=== PATIENT | male | born 1970 | race African-American/Black ===

== ENCOUNTER 2018-04-21 18:56 | Emergency (ER) | payer BC ==
[2018-04-21] MEDS ORDERED: HYDROcodone/APAP 5-325MG 1 EACH TAB PO STA (19:26)
[2018-04-21] MEDS ORDERED: KETOROLAC 60 MG/2 ML VIAL IM STA (19:26)
[2018-04-21] MEDS ORDERED: ACET/COD 300 MG/30 MG STARTER PACK 6 TAB BTL PO STA (19:34)
[2018-04-21] MEDS ORDERED: Acetaminophen-Codeine 300-30mg TAB PO STA (19:34)
--- NOTE | 2018-04-21 19:34 | ED ---
General Adult HPI - General Chief complaint: Back Pain/Injury Stated complaint: POSS KIDNEY STONE Time Seen by Provider: 04/21/18 19:13 Source: patient, RN notes reviewed, old records reviewed Mode of arrival: ambulatory Limitations: no limitations - History of Present Illness Initial comments: This is a 47-year-old male the ER for evaluation pain flank pain and back pain. Patient has no significant medical history history of kidney stones states this feels similar. Left-sided flank and back pain. Patient had no injury noted, no blood in his urine no fevers. No recent IV drug use or abuse. Patient is complaining of left-sided flank pain left sided back pain. No real modifying factors for symptoms - Related Data Previous Rx's Medication Instructions Recorded Naproxen [Naprosyn] 500 mg PO Q12HR PRN #30 tab 04/21/18 Tamsulosin [Flomax] 0.4 mg PO DAILY #7 cap 04/21/18 Allergies Allergy/AdvReac Type Severity Reaction Status Date / Time No Known Allergies Allergy Verified 04/21/18 19:11 Review of Systems ROS Statement: Those systems with pertinent positive or pertinent negative responses have been documented in the HPI. ROS Other: All systems not noted in ROS Statement are negative. Past Medical History Past Medical History: No Reported History History of Any Multi-Drug Resistant Organisms: None Reported Additional Past Surgical History / Comment(s): parathyroid surgery Past Psychological History: No Psychological Hx Reported Smoking Status: Never smoker Past Alcohol Use History: Occasional Past Drug Use History: None Reported General Exam Limitations: no limitations General appearance: alert, in no apparent distress Head exam: Present: atraumatic, normocephalic, normal inspection Eye exam: Present: normal appearance, PERRL, EOMI. Absent: scleral icterus, conjunctival injection, periorbital swelling ENT exam: Present: normal exam, mucous membranes moist Neck exam: Present: normal inspection. Absent: tenderness, meningismus, lymphadenopathy Respiratory exam: Present: normal lung sounds bilaterally. Absent: respiratory distress, wheezes, rales, rhonchi, stridor Cardiovascular Exam: Present: regular rate, normal rhythm, normal heart sounds. Absent: systolic murmur, diastolic murmur, rubs, gallop, clicks GI/Abdominal exam: Present: soft, normal bowel sounds. Absent: distended, tenderness, guarding, rebound, rigid Extremities exam: Present: normal inspection, full ROM, normal capillary refill. Absent: tenderness, pedal edema, joint swelling, calf tenderness Back exam: Present: normal inspection Neurological exam: Present: alert, oriented X3, CN II-XII intact Psychiatric exam: Present: normal affect, normal mood Skin exam: Present: warm, dry, intact, normal color. Absent: rash Course Vital Signs 04/21/18 04/21/18 19:09 21:20 Temperature 98.6 F 98.0 F Pulse Rate 58 L 62 Respiratory 18 16 Rate Blood Pressure 125/82 121/62 O2 Sat by Pulse 99 98 Oximetry - Reevaluation(s) Reevaluation #1: Chest at length patient's symptoms, negative CT. Possible passage of kidney stone Medical Decision Making - Medical Decision Making 47 male the ER for eversion possible kidney stone, history of kidney stones. Patient does have CT here which is negative urine is negative. Patient will be discharged home - Lab Data Lab Results 04/21/18 Range/Units 20:00 Urine Color Light Yellow Urine Appearance Clear (Clear) Urine pH 6.0 (5.0-8.0) Ur Specific [place] 1.010 (1.001-1.035) Urine Protein Negative (Negative) Urine Glucose (UA) Negative (Negative) Urine Ketones Negative (Negative) Urine Blood Negative (Negative) Urine Nitrite Negative (Negative) Urine Bilirubin Negative (Negative) Urine Urobilinogen <2.0 (<2.0) mg/dL Ur Leukocyte Esterase Negative (Negative) - Radiology Data Radiology results: report reviewed (CT abdomen and pelvis negative for acute disease), image reviewed Disposition Clinical Impression: Left flank pain Disposition: HOME SELF-CARE Condition: Good Instructions: Acute Low Back Pain (ED) Prescriptions: Naproxen [Naprosyn] 500 mg PO Q12HR PRN #30 tab PRN Reason: Pain Tamsulosin [Flomax] 0.4 mg PO DAILY #7 cap Is patient prescribed a controlled substance at d/c from ED?: No Referrals: Patsy Mcclain MD [Primary Care Provider] - 1-2 days
[2018-04-21 20:17] LABS: Appearance,Urine Clear (Clear); Bilirubin,Urine Negative (Negative); Blood,Urine Negative (Negative); Color,Urine Light Yellow; Glucose,Urine (UA) Negative (Negative); Ketones,Urine Negative (Negative); Leukocyte Esterase,Urine Negative (Negative); Nitrite,Urine Negative (Negative); Protein,Urine Negative (Negative); Urobilinogen,Urine <2.0 mg/dL (<2.0)
--- NOTE | 2018-04-21 20:47 | CT ---
EXAMINATION TYPE: CT abdomen pelvis wo con DATE OF EXAM: 04/21/2018 COMPARISON: 09/07/2010 HISTORY: 47-year-old male Bilateral flank pain. CT DLP: 445.1 mGycm. Automated exposure control for dose reduction was used. TECHNIQUE: Contiguous axial scanning of the abdomen and pelvis without IV contrast. Coronal and sagit jose reconstructions performed. FINDINGS: Heart normal size without pericardial effusion. Strandy atelectasis in the lower lungs. No pleural ef fusion. Tiny hiatal hernia. Noncontrast images of the liver show a couple scattered hypodense lesions too small for accurate CT c haracterization, largest posteriorly in the right lobe measures 1.3 cm, slightly larger from st suggestive of a cyst. Gallbladder, adrenal glands, spleen, and pancreas show no gross anomaly. No nephrolithiasis or hydronephrosis. Stable borderline sized adia hepatic lymph node at 9 mm. Additional scattered prominent but nonenlar ged mesenteric lymph nodes are unchanged. No dilated small bowel, free fluid, or free air. Normal appendix. Mild to moderate stool burden. Scat tered colonic diverticulosis, greatest in the sigmoid colon. No pericolonic inflammatory change. Bladder is urine distended. Prostate gland measures 4.2 cm wide. Phlebolith in the right side of the pelvis. No abnormal fluid collection the pelvis or pelvic lymphadenopathy. Bones: Mild degenerative changes at the hips. Stable left acetabular bone island. There is some bony ankylosis across the SI joints. No osseous destructive process. IMPRESSION: 1. No nephrolithiasis or hydronephrosis. 2. Colonic diverticulosis without acute diverticulitis. 3. Tiny hiatal hernia. 4. Ankylosis across the SI joints. Clinically correlate. Findings can be seen in the setting of infl ammatory spondyloarthropathy. No fusion across the spine is seen at this time.
[2018-04-21 21:23] VITALS: BP 121/62; PULSE 62; RESP 16; TEMP 98
== END 2018-04-21 21:20 | disposition home or self-care (01) ==
LOC: EC 18:56
DX: R10.9 Unspecified abdominal pain (principal); M54.9 Dorsalgia, unspecified; Z87.442 Personal history of urinary calculi; Z98.890 Other specified postprocedural states
CPT/HCPCS: 81003; 87086; 74176; 96372; 99284; J1885

== ENCOUNTER → 2018-11-14 | Outpatient (CLI) | payer BC ==
[2018-11-14 17:17] LABS: Albumin 4.8 g/dL (3.80-4.90); Anion Gap 8.6 mmol/L (4.00-12.00); Calcium 9.8 mg/dL (8.7-10.3); Carbon Dioxide 26.4 mmol/L (21.6-31.8); Globulin 2.4 g/dL (1.6-3.3); LDL Cholesterol,Calculated 154.6 mg/dL (0.0-131.0); Potassium 4.4 mmol/L (3.5-5.5); Total Bilirubin 0.7 mg/dL (0.3-1.2); Total Protein 7.2 g/dL (6.2-8.2); VLDL Calculation 40.4 mg/dL (5.00-40.00)
== END | disposition home or self-care (01) ==
LOC: LABWHC1 10:21
DX: E78.5 Hyperlipidemia, unspecified (principal)
CPT/HCPCS: 36415; 80053; 80061; 84443

== ENCOUNTER → 2020-10-13 | Outpatient (CLI) | payer BC ==
--- NOTE | 2020-10-13 08:13 | US ---
EXAMINATION TYPE: US abdomen complete DATE OF EXAM: 10/13/2020 COMPARISON: NONE CLINICAL HISTORY: Q44.6 Cystic disease of liver. Limited due to body habitus EXAM MEASUREMENTS: Liver Length: 12.1 cm Gallbladder Wall: .2 cm CBD: .5 cm Spleen: 12 cm Right Kidney: 10.3 x 4.6 x 4.9 cm Left Kidney: 10.6 x 5.1 x 4.6 cm Pancreas: Obscured by bowel gas Liver: 0.9 cm cystic area left lobe Gallbladder: Stones visualized Evidence for sonographic Lind's sign: No CBD: wnl Spleen: wnl Right Kidney: wnl Left Kidney: wnl Upper IVC: wnl Abd Aorta: wnl IMPRESSION: 1. Hepatic cyst 2. Cholelithiasis
== END | disposition home or self-care (01) ==
LOC: RADUSWWP 07:15
PROVIDERS: ATTEND Internal Medicine
DX: K76.89 Other specified diseases of liver (principal); K80.20 Calculus of gallbladder without cholecystitis without obstruction
CPT/HCPCS: 76700

== ENCOUNTER 2020-10-16 21:13 | Emergency (ER) | payer BC ==
[2020-10-16 21:19] VITALS: RESP 20
[2020-10-16] MEDS ORDERED: SODIUM CHLORIDE 0.9% 1,000 ML IV STA (21:31)
[2020-10-16 21:49] LABS: Basophils # (A) 0.1 k/uL (0-0.2); Basophils % (A) 1 %; Eosinophils # (A) 0.3 k/uL (0-0.7); Eosinophils % (A) 2 %; HCT 43.2 % (39.0-53.0); HGB 15.1 gm/dL (13.0-17.5); Lymphocytes # (A) 1.2 k/uL (1.0-4.8); Lymphocytes % (A) 10 %; MCH 30.4 pg (25.0-35.0); MCHC 34.9 g/dL (31.0-37.0); MCV 87.1 fL (80.0-100.0); Mean Platelet Volume 10.3; Monocytes # (A) 0.9 k/uL (0-1.0); Monocytes % (A) 7 %; Neutrophils # (A) 9.9 k/uL (1.3-7.7); Neutrophils % (A) 80 %; Platelet Count 178 k/uL (150-450); RBC 4.96 m/uL (4.30-5.90); RDW 12.7 % (11.5-15.5); WBC 12.5 k/uL (3.8-10.6)
[2020-10-16 21:58] LABS: ALT 23 U/L (4-49); AST 29 U/L (17-59); African American GFR (CKD) >90 (>60 ml/min/1.73 sqM); Albumin 4.8 g/dL (3.5-5.0); Alkaline Phosphatase 57 U/L (38-126); Amylase 75 U/L (30-110); Anion Gap 12 mmol/L; Blood Urea Nitrogen 13 mg/dL (9-20); Calcium 10.3 mg/dL (8.4-10.2); Carbon Dioxide 22 mmol/L (22-30); Chloride 103 mmol/L (98-107); Glucose 124 mg/dL (74-99); Lipase 63 U/L (23-300); Non-African American GFR(CKD) >90 (>60 ml/min/1.73 sqM); Potassium 3.9 mmol/L (3.5-5.1); Sodium 137 mmol/L (137-145); Total Bilirubin 1.1 mg/dL (0.2-1.3); Total Protein 8.3 g/dL (6.3-8.2)
[2020-10-16 22:01] LABS: Appearance,Urine Clear (Clear); Bilirubin,Urine Negative (Negative); Blood,Urine Negative (Negative); Color,Urine Yellow; Glucose,Urine (UA) Negative (Negative); Ketones,Urine Negative (Negative); Leukocyte Esterase,Urine Negative (Negative); Nitrite,Urine Negative (Negative); Protein,Urine Negative (Negative); Specific Gravity,Urine 1.013 (1.001-1.035); Urobilinogen,Urine <2.0 mg/dL (<2.0)
--- NOTE | 2020-10-16 22:41 | ED ---
Abdominal Pain HPI - General Chief Complaint: Abdominal Pain Stated Complaint: Abd Pain Time Seen by Provider: 10/16/20 21:21 Source: patient Mode of arrival: ambulatory Limitations: no limitations - History of Present Illness Initial Comments: 50-year-old male patient presents to the emergency department today for evaluation of generalized abdominal discomfort and pain. Patient states he did have a bowel movement but still feels like he was quite full. He is passing gas. Denies fever or chills. Denies nausea or vomiting. States he has had no appetite today. Denies history of abdominal surgery. States he takes Singulair and Claritin but no other medications. Patient denies any recent rash, cough, shortness of breath, chest pain, back pain, numbness, tingling, dizziness, weakness, hematuria, dysuria, urinary urgency, urinary frequency, headache, visual changes, or any other complaints. - Related Data Home Medications Medication Instructions Recorded Confirmed Loratadine-Pseudoeph 10-240 mg 1 tab PO DAILY@1900 10/16/20 10/16/20 [Claritin-D 24 Hour] Montelukast Sodium [Singulair] 10 mg PO DAILY@1900 10/16/20 10/16/20 Previous Rx's Medication Instructions Recorded Amoxic-Pot Clav 875-125Mg 1 tab PO Q12HR #20 tablet 10/16/20 [Augmentin 875-125] Ondansetron [Zofran ODT] 4 mg PO Q8HR PRN #10 tab 10/16/20 Allergies Allergy/AdvReac Type Severity Reaction Status Date / Time No Known Allergies Allergy Verified 10/16/20 21:59 Review of Systems ROS Statement: Those systems with pertinent positive or pertinent negative responses have been documented in the HPI. ROS Other: All systems not noted in ROS Statement are negative. Past Medical History Past Medical History: No Reported History History of Any Multi-Drug Resistant Organisms: None Reported Additional Past Surgical History / Comment(s): parathyroid surgery Past Psychological History: No Psychological Hx Reported Smoking Status: Current every day smoker Past Alcohol Use History: Occasional Past Drug Use History: Marijuana General Exam Limitations: no limitations General appearance: alert, in no apparent distress, other (this is a well- developed, well-nourished adult male patient in no acute distress.) Eye exam: Present: normal appearance, PERRL, EOMI. Absent: scleral icterus, conjunctival injection, periorbital swelling ENT exam: Present: normal exam, normal oropharynx, mucous membranes moist Respiratory exam: Present: normal lung sounds bilaterally. Absent: respiratory distress, wheezes, rales, rhonchi, stridor Cardiovascular Exam: Present: regular rate, normal rhythm, normal heart sounds. Absent: systolic murmur, diastolic murmur, rubs, gallop, clicks GI/Abdominal exam: Present: soft, tenderness (generalized especially over the left lower and suprapubic regions), normal bowel sounds. Absent: distended, guarding, rebound, rigid Neurological exam: Present: alert, oriented X3, CN II-XII intact Psychiatric exam: Present: normal affect, normal mood Skin exam: Present: warm, dry, intact, normal color. Absent: rash Course Vital Signs 10/16/20 10/16/20 10/16/20 21:15 22:31 23:10 Temperature 98.7 F 98.2 F Pulse Rate 95 74 78 Respiratory 20 20 20 Rate Blood Pressure 143/91 137/90 135/94 O2 Sat by Pulse 99 98 98 Oximetry Medical Decision Making - Medical Decision Making 50-year-old male patient presents to the emergency department today for evaluation of generalized abdominal pain and discomfort. Denies vomiting. No fever. Physical examination did reveal tenderness over the suprapubic and left lower quadrant regions. Labs reviewed and did reveal white blood cell count at 12.5. Did obtain CT abdomen and pelvis did show evidence for sigmoid diverticulitis. As patient is tolerating oral intake currently and there is no evidence for abscess we will be able to discharge home with oral antibiotics. He is given starter packs her pain and nausea medication. Given a dose of Augmentin here. He is instructed to follow-up with his primary care physician for recheck in 1-2 days. We did discuss return parameters in detail. He verbalizes understanding and agrees with this plan. Case discussed with Dr. Ignacio. - Lab Data Result diagrams: 10/16/20 21:34 10/16/20 21:34 Lab Results 10/16/20 10/16/20 10/16/20 Range/Units 21:34 21:34 21:34 WBC 12.5 H (3.8-10.6) k/uL RBC 4.96 (4.30-5.90) m/uL Hgb 15.1 (13.0-17.5) gm/dL Hct 43.2 (39.0-53.0) % MCV 87.1 (80.0-100.0) fL MCH 30.4 (25.0-35.0) pg MCHC 34.9 (31.0-37.0) g/dL RDW 12.7 (11.5-15.5) % Plt Count 178 (150-450) k/uL MPV 10.3 Neutrophils % 80 % Lymphocytes % 10 % Monocytes % 7 % Eosinophils % 2 % Basophils % 1 % Neutrophils # 9.9 H (1.3-7.7) k/uL Lymphocytes # 1.2 (1.0-4.8) k/uL Monocytes # 0.9 (0-1.0) k/uL Eosinophils # 0.3 (0-0.7) k/uL Basophils # 0.1 (0-0.2) k/uL Sodium 137 (137-145) mmol/L Potassium 3.9 (3.5-5.1) mmol/L Chloride 103 (98-107) mmol/L Carbon Dioxide 22 (22-30) mmol/L Anion Gap 12 mmol/L BUN 13 (9-20) mg/dL Creatinine 0.91 (0.66-1.25) mg/dL Est GFR (CKD-EPI)AfAm >90 (>60 ml/min/1.73 sqM) Est GFR (CKD-EPI)NonAf >90 (>60 ml/min/1.73 sqM) Glucose 124 H (74-99) mg/dL Plasma Lactic Acid [place] (0.7-2.0) mmol/L Calcium 10.3 H (8.4-10.2) mg/dL Total Bilirubin 1.1 (0.2-1.3) mg/dL AST 29 (17-59) U/L ALT 23 (4-49) U/L Alkaline Phosphatase 57 (38-126) U/L Total Protein 8.3 H (6.3-8.2) g/dL Albumin 4.8 (3.5-5.0) g/dL Amylase 75 (30-110) U/L Lipase 63 (23-300) U/L Urine Color Yellow Urine Appearance Clear (Clear) Urine pH 6.0 (5.0-8.0) Ur Specific [place] 1.013 (1.001-1.035) Urine Protein Negative (Negative) Urine Glucose (UA) Negative (Negative) Urine Ketones Negative (Negative) Urine Blood Negative (Negative) Urine Nitrite Negative (Negative) Urine Bilirubin Negative (Negative) Urine Urobilinogen <2.0 (<2.0) mg/dL Ur Leukocyte Esterase Negative (Negative) 10/16/20 Range/Units 21:34 WBC (3.8-10.6) k/uL RBC (4.30-5.90) m/uL Hgb (13.0-17.5) gm/dL Hct (39.0-53.0) % MCV (80.0-100.0) fL MCH (25.0-35.0) pg MCHC (31.0-37.0) g/dL RDW (11.5-15.5) % Plt Count (150-450) k/uL MPV Neutrophils % % Lymphocytes % % Monocytes % % Eosinophils % % Basophils % % Neutrophils # (1.3-7.7) k/uL Lymphocytes # (1.0-4.8) k/uL Monocytes # (0-1.0) k/uL Eosinophils # (0-0.7) k/uL Basophils # (0-0.2) k/uL Sodium (137-145) mmol/L Potassium (3.5-5.1) mmol/L Chloride (98-107) mmol/L Carbon Dioxide (22-30) mmol/L Anion Gap mmol/L BUN (9-20) mg/dL Creatinine (0.66-1.25) mg/dL Est GFR (CKD-EPI)AfAm (>60 ml/min/1.73 sqM) Est GFR (CKD-EPI)NonAf (>60 ml/min/1.73 sqM) Glucose (74-99) mg/dL Plasma Lactic Acid [place] 1.3 (0.7-2.0) mmol/L Calcium (8.4-10.2) mg/dL Total Bilirubin (0.2-1.3) mg/dL AST (17-59) U/L ALT (4-49) U/L Alkaline Phosphatase (38-126) U/L Total Protein (6.3-8.2) g/dL Albumin (3.5-5.0) g/dL Amylase (30-110) U/L Lipase (23-300) U/L Urine Color Urine Appearance (Clear) Urine pH (5.0-8.0) Ur Specific [place] (1.001-1.035) Urine Protein (Negative) Urine Glucose (UA) (Negative) Urine Ketones (Negative) Urine Blood (Negative) Urine Nitrite (Negative) Urine Bilirubin (Negative) Urine Urobilinogen (<2.0) mg/dL Ur Leukocyte Esterase (Negative) - Radiology Data Radiology results: report reviewed, image reviewed CT abdomen and pelvis with contrast was obtained. Report reviewed in its entirety. Impression by Dr. Horta shows sigmoid diverticulitis. No drainable fluid collection. Disposition Clinical Impression: Sigmoid diverticulitis Disposition: HOME SELF-CARE Condition: Good Instructions (If sedation given, give patient instructions): Diverticulitis (ED), Diverticulitis Diet (ED) Additional Instructions: Take medications as directed. Stick to bland diet for the next few days. Follow up with your primary care physician for recheck in 1-2 days. Return to the emergency department for any new, worsening, or concerning symptoms. Prescriptions: Amoxic-Pot Clav 875-125Mg [Augmentin 875-125] 1 tab PO Q12HR #20 tablet Ondansetron [Zofran ODT] 4 mg PO Q8HR PRN #10 tab PRN Reason: Nausea Is patient prescribed a controlled substance at d/c from ED?: No Referrals: Renee Andersen MD [Primary Care Provider] - 1-2 days Time of Disposition: 22:55
--- NOTE | 2020-10-16 22:42 | CT ---
EXAMINATION TYPE: CT abdomen pelvis w con DATE OF EXAM: 10/16/2020 COMPARISON: 04/21/2018 HISTORY: Generalized abdominal pain. CT DLP: 863.3 mGycm Automated exposure control for dose reduction was used. CONTRAST: Performed with IV Contrast, patient injected with 100 mL of Isovue 300. Lung bases are clear of consolidation. There is no pleural effusion. Heart size is normal. There are scattered cysts in the liver that measure up to 1.5 cm. Bile ducts are not dilated. Spleen pancreas stomach gallbladder appear intact. There is no adrenal mass. Kidneys show satisfactory contrast opacification. There is no hydronephrosi s. Ureters are not dilated. There is no retroperitoneal adenopathy. Appendix is posterior and appears normal. Bladder distends smoothly. There is no inguinal hernia. There is no free fluid in the pelvis . There is fat stranding and wall thickening of the mid sigmoid colon. There is 6 cm segment of involve ment. There are multiple sigmoid diverticula. There is no evidence of bowel obstruction. There is no free air. There is no ascites. Lumbar vertebra have normal alignment. Posterior elements are intact. There is no lumbar compression fracture. Bony pelvis is intact. The hip joints are intact. IMPRESSION: There is sigmoid diverticulitis. No drainable fluid collection.
[2020-10-16] MEDS ORDERED: AMOXIC-POT CLAV 875MG STARTER PACK 2 TAB BTL PO STA (22:46)
[2020-10-16] MEDS ORDERED: ACET/COD 300 MG/30 MG STARTER PACK 6 TAB BTL PO STA (22:55)
[2020-10-16] MEDS ORDERED: ONDANSETRON 4 MG ODT STARTER PACK 2 TAB BTL PO STA (22:55)
[2020-10-16 23:17] VITALS: BP 135/94; PULSE 78; TEMP 98.2
== END 2020-10-16 23:10 | disposition home or self-care (01) ==
LOC: EC 21:13
DX: K57.32 Diverticulitis of large intestine without perforation or abscess without bleeding (principal); F17.200 Nicotine dependence, unspecified, uncomplicated; Z79.51 Long term (current) use of inhaled steroids
CPT/HCPCS: 36415; 80053; 82150; 83605; 83690; 85025; 81003; 74177; 99284; 96360; S0119; Q9967

== ENCOUNTER → 2020-12-23 | Outpatient (CLI) | payer BC ==
--- NOTE | 2020-12-23 15:13 | CONS ---
CONSULTATION DATE OF SERVICE: 12/23/2020 This 50-year-old gentleman who has been re-evaluated in [facility] for obstructive sleep apnea-hypopnea syndrome. HISTORY OF PRESENT ILLNESS/SLEEP-WAKE EVALUATION: The patient has been diagnosed with severe central and obstructive sleep apnea-hypopnea syndrome in our institution in 2010. At that time, apnea-hypopnea index was 40.9, which includes 51 obstructive apneas, 73 central apneas, 44 mixed apneas, 23 hypopneas. The patient was treated with BiPAP with a pressure of 12/6 and for this 10 years, patient continued to use his BiPAP equipment. About 3 months ago, he received new BiPAP and came to re-evaluation to sleep center. He continued to use BiPAP equipment every night. Usually no significant snoring with BiPAP. His sleep schedule from 11 p.m. to 4:30 a.m. on weekdays and from midnight until 9 a.m. on weekends. No problem with falling asleep, although has TV set in bedroom. He sleeps on the side position. He wakes up from sleep up to 2 times with one episode of nocturia. No history of hypnagogic hallucinations, sleep paralysis or cataplexy. He does not take any naps. [place] Sleepiness Scale today is 7. PAST MEDICAL HISTORY: Positive for allergies. PAST SURGICAL HISTORY: Parathyroidectomy. MEDICATIONS: Claritin-D and Singulair. SOCIAL HISTORY: Negative for smoking or using alcohol. FAMILY HISTORY: Hyperlipidemia and thyroid problems. REVIEW OF SYSTEMS: Occasional awakenings from sleep, snoring, and problem with breathing without BiPAP. PHYSICAL EXAMINATION: GENERAL: gentleman without distress. VITAL SIGNS: BP 131/84, HR 57, RR 15, height 5 feet 8-1/2 inches, weight 184.0, BMI 27.8, temperature 98.0, oxygen saturation at room air 98%. HEENT: PERRLA, EOMI. Low position of soft palate. NECK: 16 inches in circumference. LUNGS: Clear to percussion and to auscultation. Good air exchange. No wheezing or rhonchi. HEART: S1, S2 regular. No murmurs, gallops, or rubs. ABDOMEN: Soft and nontender. Bowel sounds are present. No organomegaly appreciated. EXTREMITIES: No clubbing or cyanosis. 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 Cranial nerves 2 to 7 intact. There is no fasciculation or atrophy. noted. No focal deficits observed. I checked the patient BiPAP unit. BiPAP pressure is 12/16 cm of water. Usage is 28 out of 30 nights and 23 out of 30 nights more than 4 hours, average usage 5.3 hours per night. Leak is 10 L/minute. Apnea-hypopnea index 6.8, which includes central apnea- hypopnea index 3.6. IMPRESSION: 1. Severe obstructive and central sleep apnea-hypopnea syndrome. The patient demonstrated good compliance with treatment, benefitting from treatment. Apnea- hypopnea index still slightly increased by results of reading from his BiPAP unit. 2. Allergy. 3. Status post parathyroidectomy. 4. History of snoring. PLAN: 1. I adjusted his BiPAP to automatic regimen with maximal inspiratory pressure 15 and minimal expiratory pressure of 5 with pressure support 4. 2. Patient should continue to use BiPAP equipment every night for the whole night. 3. Watching weight. 4. Sleep hygiene with regular time in bed for 7-1/2 or 8 hours. 5. No driving if feeling sleepiness. 6. Follow-up visit in 6 months. The patient should have regular monitoring in Sleep Center to be sure that the equipment is working properly and he gets all necessary supplies. Thank you very much for allowing me to participate in management of your patient. Sincerely, MD Dean, PhD, FAASM Diplomat of [employer] [employer] Quality Improvement Manager of [facility] [place] MMODL / TERESAN: [id number] /
== END | disposition home or self-care (01) ==
LOC: SLEEP 13:00
PROVIDERS: ATTEND Internal Medicine
DX: G47.33 Obstructive sleep apnea (adult) (pediatric) (principal); G47.31 Primary central sleep apnea; T78.40XA Allergy, unspecified, initial encounter; Z99.89 Dependence on other enabling machines and devices; Z90.09 Acquired absence of other part of head and neck
CPT/HCPCS: 99211

== ENCOUNTER 2021-01-29 22:07 | Emergency (ER) | payer BC ==
[2021-01-29 22:15] VITALS: BP 151/96; PULSE 56; RESP 16; TEMP 97.8
--- NOTE | 2021-01-29 22:28 | ED ---
Recheck HPI - General Chief Complaint: Recheck/Abnormal Lab/Rx Stated Complaint: Covid testing Time Seen by Provider: 01/29/21 22:15 Source: patient Mode of arrival: ambulatory Limitations: no limitations - History of Present Illness Initial Comments: 50-year-old male presenting for covert exposure Patient denies any recent fever, chills, cough, shortness of breath, chest pain, back pain, abdominal pain, nausea or vomiting, numbness or tingling, dysuria or hematuria, constipation or diarrhea, headaches or visual changes, or any other complaints. Fully vaccinated. - Related Data Home Medications Medication Instructions Recorded Confirmed Loratadine-Pseudoeph 10-240 mg 1 tab PO DAILY@189910/16/20 10/16/20 [Claritin-D 24 Hour] Montelukast Sodium [Singulair] 10 mg PO DAILY@189910/16/20 10/16/20 Previous Rx's Medication Instructions Recorded Amoxic-Pot Clav 875-125Mg 1 tab PO Q12HR #20 tablet 10/16/20 [Augmentin 875-125] Ondansetron [Zofran ODT] 4 mg PO Q8HR PRN #10 tab 10/16/20 Allergies Allergy/AdvReac Type Severity Reaction Status Date / Time No Known Allergies Allergy Verified 01/29/21 22:12 Review of Systems ROS Statement: Those systems with pertinent positive or pertinent negative responses have been documented in the HPI. ROS Other: All systems not noted in ROS Statement are negative. Past Medical History Past Medical History: No Reported History History of Any Multi-Drug Resistant Organisms: None Reported Additional Past Surgical History / Comment(s): parathyroid surgery Past Psychological History: No Psychological Hx Reported Smoking Status: Former smoker Past Alcohol Use History: Occasional Past Drug Use History: Marijuana General Exam - General Exam Comments Initial Comments: General: The patient is awake and alert, in no distress Eye: pupils are equal, round and reactive to light, extra-ocular movements are intact. No nystagmus. There is normal conjunctiva bilaterally. No signs of icterus. Neurological: A&O x 3. CN II-XII intact grossly, There are no obvious motor or sensory deficits. Coordination appears grossly intact. Speech is normal. Skin: Skin is warm and dry and no rashes or lesions are noted. Psychiatric: Cooperative, appropriate mood & affect, normal judgment. Limitations: no limitations Course Vital Signs 01/29/21 22:12 Temperature 97.8 F Pulse Rate 56 L Respiratory 16 Rate Blood Pressure 151/96 O2 Sat by Pulse 98 Oximetry - Reevaluation(s) Reevaluation #1: called with covid results. pt answered and is aware. 01/29/21 23:16 Medical Decision Making - Medical Decision Making swabbed. wants to leave and be called with results. pt kathi be notified. - Lab Data Lab Results 01/29/21 Range/Units 22:29 Coronavirus (PCR) Not Detected (Not Detectd) Disposition Clinical Impression: Exposure to COVID-19 virus Disposition: HOME SELF-CARE Condition: Good Instructions (If sedation given, give patient instructions): Coronavirus Disease 2019 (COVID-19) Additional Instructions: Please return to emergency room if the symptoms increase or worsen or for any other concerns. Is patient prescribed a controlled substance at d/c from ED?: No Referrals: Renee Andersen MD [Primary Care Provider] - 1-2 days Time of Disposition: 22:32
== END 2021-01-29 22:41 | disposition home or self-care (01) ==
LOC: EC 22:07
DX: Z20.822 Contact with and (suspected) exposure to COVID-19 (principal); F12.90 Cannabis use, unspecified, uncomplicated; Z87.891 Personal history of nicotine dependence
CPT/HCPCS: 87635; 99283

== ENCOUNTER 2021-10-06 08:48 | Emergency (ER) | payer BC ==
[2021-10-06 08:53] VITALS: RESP 18; TEMP 98.1
[2021-10-06] MEDS ORDERED: ASPIRIN 81 MG PO STA (09:00)
[2021-10-06] MEDS ORDERED: SODIUM CHLORIDE 0.9% 500 ML 500 ML IV STA (09:00)
[2021-10-06] MEDS ORDERED: MAG HYDROX/AL HYDROX/SIMETH 30 ML, HYOSCYAMINE ELIXIR 10 ML PO STA ×2 (09:01)
--- NOTE | 2021-10-06 09:26 | ED ---
Chest Pain HPI - General Chief Complaint: Chest Pain Stated Complaint: Chest pain Time Seen by Provider: 10/06/21 08:53 Source: patient, RN notes reviewed Mode of arrival: ambulatory Limitations: no limitations - History of Present Illness Initial Comments: 51-year-old male presents emergency Department with chief complaint of epigastric discomfort. Patient states started last night worsened today with some exertion, but also worsened at rest at work. Patient states that it hurts to press ripples ribs in his epigastric region he did take some Tums with seemed to help with didn't really alleviate symptoms. Patient has no prior cardiac disease denies hypertension hyperlipidemia diabetes no family heart disease. Patient states does hurt with movement, is nonradiating at this time. Denies any shortness of breath no diaphoretic episodes. No vomiting. - Related Data Home Medications Medication Instructions Recorded Confirmed Loratadine-Pseudoeph 10-240 mg 1 tab PO DAILY 10/16/20 10/06/21 [Claritin-D 24 Hour] Montelukast Sodium [Singulair] 10 mg PO DAILY 10/16/20 10/06/21 Previous Rx's Medication Instructions Recorded Omeprazole [PriLOSEC] 40 mg PO DAILY #14 cap 10/06/21 Allergies Allergy/AdvReac Type Severity Reaction Status Date / Time No Known Allergies Allergy Verified 10/06/21 08:50 Review of Systems ROS Statement: Those systems with pertinent positive or pertinent negative responses have been documented in the HPI. ROS Other: All systems not noted in ROS Statement are negative. Past Medical History Past Medical History: No Reported History History of Any Multi-Drug Resistant Organisms: None Reported Additional Past Surgical History / Comment(s): parathyroid surgery Past Psychological History: No Psychological Hx Reported Smoking Status: Current every day smoker Past Alcohol Use History: Occasional Past Drug Use History: Marijuana General Exam Limitations: no limitations General appearance: alert, in no apparent distress Head exam: Present: atraumatic, normocephalic, normal inspection Eye exam: Present: normal appearance, PERRL, EOMI. Absent: scleral icterus, conjunctival injection, periorbital swelling ENT exam: Present: normal exam, normal oropharynx, mucous membranes moist Neck exam: Present: normal inspection, full ROM. Absent: tenderness, meningismus, lymphadenopathy Respiratory exam: Present: normal lung sounds bilaterally. Absent: respiratory distress, wheezes, rales, rhonchi, stridor Cardiovascular Exam: Present: regular rate, normal rhythm, normal heart sounds. Absent: systolic murmur, diastolic murmur, rubs, gallop, clicks GI/Abdominal exam: Present: soft, tenderness (Epigastric), normal bowel sounds. 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 Patient has very localized tenderness this region. Patient for concluding labs EKG and chest x-ray with no acute findings. Patient's troponin is negative. EKG does not reveal any acute changes. Patient did have relief of symptoms with GI cocktail. He did have some relief of symptoms with Tums at home. Patient will be discharged with omeprazole patient was given strict return parameters. Disposition Clinical Impression: Gastritis Disposition: HOME SELF-CARE Condition: Stable Instructions (If sedation given, give patient instructions): Gastritis (ED) Additional Instructions: Please return to the Emergency Department if symptoms worsen or any other concerns. Prescriptions: Omeprazole [PriLOSEC] 40 mg PO DAILY #14 cap Is patient prescribed a controlled substance at d/c from ED?: No Referrals: Renee Andersen MD [Primary Care Provider] - 1-2 days Time of Disposition: 10:39
--- NOTE | 2021-10-06 09:44 | XR ---
EXAMINATION TYPE: XR chest 2V DATE OF EXAM: 10/06/2021 COMPARISON: None INDICATION: Pain TECHNIQUE: Frontal and lateral views of the chest are obtained. FINDINGS: The heart size is normal. The pulmonary vasculature is normal. The lungs are clear. IMPRESSION: 1. No acute pulmonary process.
[2021-10-06 09:52] LABS: Basophils % (A) 1 %; Eosinophils # (A) 0.1 k/uL (0-0.7); Eosinophils % (A) 2 %; HCT 45.1 % (39.0-53.0); Lymphocytes # (A) 1.1 k/uL (1.0-4.8); Lymphocytes % (A) 22 %; MCH 30.2 pg (25.0-35.0); MCHC 33.3 g/dL (31.0-37.0); MCV 90.9 fL (80.0-100.0); Mean Platelet Volume 10.8; Monocytes # (A) 0.4 k/uL (0-1.0); Monocytes % (A) 7 %; Neutrophils # (A) 3.4 k/uL (1.3-7.7); Neutrophils % (A) 66 %; Platelet Count 186 k/uL (150-450); RBC 4.97 m/uL (4.30-5.90); RDW 12.7 % (11.5-15.5); WBC 5.1 k/uL (3.8-10.6)
[2021-10-06 09:54] VITALS: PULSE 60
[2021-10-06 10:00] LABS: Potassium 4.3 mmol/L (3.5-5.1)
[2021-10-06 10:01] LABS: Albumin 4.7 g/dL (3.5-5.0); Calcium 10.3 mg/dL (8.4-10.2); Total Bilirubin 0.8 mg/dL (0.2-1.3); Total Protein 8.1 g/dL (6.3-8.2)
[2021-10-06 10:23] LABS: Partial Thromboplastin Time 28.2 sec (22.0-30.0); Prothrombin Time 10.4 sec (9.0-12.0)
[2021-10-06] MEDS ORDERED: ACET/COD 300 MG/30 MG STARTER PACK 6 TAB BTL PO STA (11:02)
[2021-10-06 11:28] VITALS: BP 122/87
== END 2021-10-06 11:28 | disposition home or self-care (01) ==
LOC: EC 08:48
DX: K29.70 Gastritis, unspecified, without bleeding (principal); F17.200 Nicotine dependence, unspecified, uncomplicated; F12.90 Cannabis use, unspecified, uncomplicated
CPT/HCPCS: 36415; 71046; 80053; 83690; 83735; 84484; 85025; 85610; 85730; 93005; 99284

== ENCOUNTER 2023-06-19 23:01 | Emergency (ER) | payer BC ==
[2023-06-19 23:08] VITALS: TEMP 98.4
[2023-06-19] MEDS ORDERED: SODIUM CHLORIDE 0.9% 1,000 ML IV STA (23:40)
[2023-06-20 00:21] LABS: Basophils # (A) 0.1 k/uL (0-0.2); Basophils % (A) 1 %; Eosinophils # (A) 0.3 k/uL (0-0.7); Eosinophils % (A) 3 %; HCT 42.3 % (39.0-53.0); HGB 14.2 gm/dL (13.0-17.5); Lymphocytes # (A) 2.4 k/uL (1.0-4.8); Lymphocytes % (A) 33 %; MCH 30.5 pg (25.0-35.0); MCHC 33.5 g/dL (31.0-37.0); MCV 90.8 fL (80.0-100.0); Mean Platelet Volume 11.1; Monocytes # (A) 0.5 k/uL (0-1.0); Monocytes % (A) 7 %; Neutrophils % (A) 55 %; Platelet Count 221 k/uL (150-450); RBC 4.66 m/uL (4.30-5.90); RDW 12.3 % (11.5-15.5); WBC 7.3 k/uL (3.8-10.6)
[2023-06-20 00:25] LABS: ALT 25 U/L (4-49); AST 27 U/L (17-59); African American GFR (CKD) 74 (>60 ml/min/1.73 sqM); Albumin 4.4 g/dL (3.5-5.0); Alkaline Phosphatase 54 U/L (38-126); Anion Gap 13 mmol/L; Blood Urea Nitrogen 19 mg/dL (9-20); Calcium 9.4 mg/dL (8.4-10.2); Carbon Dioxide 22 mmol/L (22-30); Chloride 106 mmol/L (98-107); Glucose 137 mg/dL (74-99); Non-African American GFR(CKD) 64 (>60 ml/min/1.73 sqM); Potassium 4.2 mmol/L (3.5-5.1); Sodium 141 mmol/L (137-145); Total Bilirubin 0.6 mg/dL (0.2-1.3); Total Protein 7.4 g/dL (6.3-8.2)
--- NOTE | 2023-06-20 02:02 | CT ---
EXAM: CT Abdomen and Pelvis With Intravenous Contrast CLINICAL HISTORY: ITS.REASON CT Reason: rectal bleeding, LLQ pain TECHNIQUE: Axial computed tomography images of the abdomen and pelvis with intravenous contrast. CTDI is 17.7 mGy and DLP is 829.9 mGy-cm. This CT exam was performed using one or more of the following dose reduction techniques: automated exposure control, adjustment of the mA and/or kV according to patient size, and/or use of iterative reconstruction technique. COMPARISON: No relevant prior studies available. FINDINGS: Lung bases: Unremarkable. No mass. No consolidation. ABDOMEN: Liver: innumerable intrahepatic hypodensities likely representing cysts. This may be further evaluated with dedicated abdominal none. Gallbladder and bile ducts: Unremarkable. No calcified stones. No ductal dilation. Pancreas: Unremarkable. No mass. No ductal dilation. Spleen: Unremarkable. No splenomegaly. Adrenals: Unremarkable. No mass. Kidneys and ureters: The kidneys opacify with and excrete contrast in a normal and symmetric fashion. No hydronephrosis. Stomach and bowel: Diverticulosis without evidence of diverticulitis. No obstruction. PELVIS: Appendix: No findings to suggest acute appendicitis. Bladder: Unremarkable. No mass. Reproductive: Unremarkable as visualized. ABDOMEN and PELVIS: Intraperitoneal space: Unremarkable. No free air. No significant fluid collection. Bones/joints: No acute fracture. No dislocation. Soft tissues: Unremarkable. Vasculature: Unremarkable. No abdominal aortic aneurysm. Lymph nodes: Unremarkable. No enlarged lymph nodes. IMPRESSION: No acute findings in the abdomen or pelvis.
[2023-06-20 03:01] VITALS: BP 150/94; PULSE 78; RESP 18
--- NOTE | 2023-06-20 03:03 | ED ---
GI Bleed HPI - General Chief complaint: GI Bleed Stated complaint: Rectal bleeding Time Seen by Provider: 06/19/23 23:29 Source: patient Mode of arrival: ambulatory Limitations: no limitations - History of Present Illness Initial comments: 52-year-old male presenting with chief complaint of rectal bleeding. States that the bleeding started this evening and is only present when he goes to have a bowel movement. Blood is dark red. Patient has history of diverticulitis. He denies any rectal or abdominal pain. No nausea, vomiting, dizziness, chest pain, difficulty breathing. Patient does not take blood thinners. No constipation or diarrhea. No fevers or chills. - Related Data Home Medications Medication Instructions Recorded Confirmed Loratadine-Pseudoeph 10-240 mg 1 tab PO DAILY 10/16/20 10/06/21 [Claritin-D 24 Hour] Montelukast Sodium [Singulair] 10 mg PO DAILY 10/16/20 10/06/21 Previous Rx's Medication Instructions Recorded Omeprazole [PriLOSEC] 40 mg PO DAILY #14 cap 10/06/21 Allergies Allergy/AdvReac Type Severity Reaction Status Date / Time No Known Allergies Allergy Verified 06/19/23 23:07 Review of Systems ROS Statement: Those systems with pertinent positive or pertinent negative responses have been documented in the HPI. ROS Other: All systems not noted in ROS Statement are negative. Past Medical History Past Medical History: Hyperlipidemia History of Any Multi-Drug Resistant Organisms: None Reported Additional Past Surgical History / Comment(s): parathyroid surgery Past Psychological History: No Psychological Hx Reported Smoking Status: Former smoker Past Alcohol Use History: Occasional Past Drug Use History: Marijuana General Exam Limitations: no limitations General appearance: alert, in no apparent distress Head exam: Present: atraumatic, normocephalic, normal inspection Eye exam: Present: normal appearance, EOMI Neck exam: Present: normal inspection, full ROM Respiratory exam: Present: normal lung sounds bilaterally. Absent: respiratory distress, wheezes, rales, rhonchi, stridor Cardiovascular Exam: Present: regular rate, normal rhythm, normal heart sounds. Absent: systolic murmur, diastolic murmur, rubs, gallop, clicks GI/Abdominal exam: Present: soft, tenderness (Mild left lower quadrant tenderness). Absent: distended, guarding, rebound, rigid Rectal exam: Present: normal inspection, heme (-) stool Neurological exam: Present: alert, oriented X3 Psychiatric exam: Present: normal affect, normal mood Skin exam: Present: warm, dry, intact, normal color. Absent: rash Course Vital Signs 06/19/23 06/20/23 23:05 02:53 Temperature 98.4 F 98.4 F Pulse Rate 123 H 78 Respiratory 20 18 Rate Blood Pressure 167/104 150/94 O2 Sat by Pulse 96 99 Oximetry Medical Decision Making - Medical Decision Making Was pt. sent in by a medical professional or institution (, [facility], [employer]IFICIAL [employer]B [employer]TER, urgent care, hospital, or jail...) When possible be specific @ -No Did you speak to anyone other than the patient for history (EMS, parent, family, police, friend...)? What history was obtained from this source @ -No Did you review nursing and triage notes (agree or disagree)? Why? @ -I reviewed and agree with nursing and triage notes Were old charts reviewed (outside hosp., previous admission, EMS record, old EKG, old radiological studies, urgent care reports/EKG's, jail records)? Report findings @ -No old charts were reviewed Differential Diagnosis (chest pain, altered mental status, abdominal pain women, abdominal pain men, vaginal bleeding, weakness, fever, dyspnea, syncope, headache, dizziness, GI bleed, back pain, seizure, CVA, palpatations, mental health, musculoskeletal)? @ -MDM Differential GI Bleed: Esophageal varices, aortoenteric fistula, Wendie-Mas, gastritis, peptic ulcer disease, diverticulosis, inflammatory bowel disease, hemorrhoids, fissure, colitis, malignancy, Meckel’s diverticulum… this is not meant to be an all- inclusive list. EKG interpreted by me (3pts min.). @ -As above X-rays interpreted by me (1pt min.). @ -None done CT interpreted by me (1pt min.). @ -No acute findings in the abdomen or pelvis U/S interpreted by me (1pt. min.). @ -None done What testing was considered but not performed or refused? (CT, X-rays, U/S, labs)? Why? @ -None What meds were considered but not given or refused? Why? @ -None Did you discuss the management of the patient with other professionals (professionals i.e. Dr., PA, ARTIFICIAL LIMB FITTER, lab, RT, psych nurse, social service manager, liquefied natural gas operator, teacher, learning and development officer, case making machine operator)? Give summary @ -No Was smoking cessation discussed for >3mins.? @ -No Was critical care preformed (if so, how long)? @ -No Were there social determinants of health that impacted care today? How? (Homelessness, low income, unemployed, alcoholism, drug addiction, transportation, low edu. Level, literacy, decrease access to med. care, correction, rehab)? @ -No Was there de-escalation of care discussed even if they declined (Discuss DNR or withdrawal of care, Hospice)? DNR status @ -No What co-morbidities impacted this encounter? (DM, HTN, Smoking, COPD, CAD, Cancer, CVA, ARF, Chemo, Hep., AIDS, mental health diagnosis, sleep apnea, morbid obesity)? @ -None Was patient admitted / discharged? Hospital course, mention meds given and route, prescriptions, significant lab abnormalities, going to OR and other pertinent info. @ -52-year-old male presenting with chief complaint of rectal bleeding that started the evening. Physical examination is conducted. Minor left lower quadrant tenderness noted. No kaitlin blood seen on rectal exam. No leukocytosis or anemia. CT is negative for acute process. Diverticulosis is noted. Bleeding is likely due to diverticulosis or internal hemorrhoids. No blood thinners. Patient is hemodynamically stable. Patient is educated on today's findings and unexpected management. Educated on alarms symptoms. Follow-up with PCP. Report back to ER with any new or worsening symptoms. Discussed return parameters and answered all questions. Patient conveyed verbal understanding and agreed to the plan. I discussed this case in detail with my attending Dr. Mitchell Undiagnosed new problem with uncertain prognosis? @ -No Drug Therapy requiring intensive monitoring for toxicity (Heparin, Nitro, Insulin, Cardizem)? @ -No Were any procedures done? @ -No Diagnosis/symptom? @ -rectal bleeding Acute, or Chronic, or Acute on Chronic? @ -Acute Uncomplicated (without systemic symptoms) or Complicated (systemic symptoms)? @ -Uncomplicated Side effects of treatment? @ -No Exacerbation, Progression, or Severe Exacerbation? @ -No Poses a threat to life or bodily function? How? (Chest pain, USA, DC, pneumonia, PE, COPD, DKA, ARF, appy, cholecystitis, CVA, Diverticulitis, Homicidal, Suicidal, threat to staff... and all critical care pts) @ -Low likelihood - Lab Data Result diagrams: 06/19/23 23:59 06/19/23 23:59 Lab Results 06/19/23 06/19/23 06/19/23 Range/Units 23:59 23:59 23:59 WBC 7.3 (3.8-10.6) k/uL RBC 4.66 (4.30-5.90) m/uL Hgb 14.2 (13.0-17.5) gm/dL Hct 42.3 (39.0-53.0) % MCV 90.8 (80.0-100.0) fL MCH 30.5 (25.0-35.0) pg MCHC 33.5 (31.0-37.0) g/dL RDW 12.3 (11.5-15.5) % Plt Count 221 (150-450) k/uL MPV 11.1 Neutrophils % 55 % Lymphocytes % 33 % Monocytes % 7 % Eosinophils % 3 % Basophils % 1 % Neutrophils # 4.0 (1.3-7.7) k/uL Lymphocytes # 2.4 (1.0-4.8) k/uL Monocytes # 0.5 (0-1.0) k/uL Eosinophils # 0.3 (0-0.7) k/uL Basophils # 0.1 (0-0.2) k/uL APTT 25.7 (22.0-30.0) sec Sodium 141 (137-145) mmol/L Potassium 4.2 (3.5-5.1) mmol/L Chloride 106 (98-107) mmol/L Carbon Dioxide 22 (22-30) mmol/L Anion Gap 13 mmol/L BUN 19 (9-20) mg/dL Creatinine 1.27 H (0.66-1.25) mg/dL Est GFR (CKD-EPI)AfAm 74 (>60 ml/min/1.73 sqM) Est GFR (CKD-EPI)NonAf 64 (>60 ml/min/1.73 sqM) Glucose 137 H (74-99) mg/dL Calcium 9.4 (8.4-10.2) mg/dL Total Bilirubin 0.6 (0.2-1.3) mg/dL AST 27 (17-59) U/L ALT 25 (4-49) U/L Alkaline Phosphatase 54 (38-126) U/L Total Protein 7.4 (6.3-8.2) g/dL Albumin 4.4 (3.5-5.0) g/dL Disposition Clinical Impression: Rectal bleeding Disposition: HOME SELF-CARE Condition: Good Instructions (If sedation given, give patient instructions): Rectal Bleeding (ED), Diverticulosis (ED), Diverticulitis Diet (ED) Additional Instructions: Follow-up with PCP. Report back to ER with any new or worsening symptoms. Is patient prescribed a controlled substance at d/c from ED?: No Referrals: Stanley Willoughby MD [Primary Care Provider] - 1-2 days Time of Disposition: 03:02
== END 2023-06-20 03:31 | disposition home or self-care (01) ==
LOC: EC 23:01
DX: K62.5 Hemorrhage of anus and rectum (principal); K57.90 Diverticulosis of intestine, part unspecified, without perforation or abscess without bleeding; F12.90 Cannabis use, unspecified, uncomplicated; Z87.891 Personal history of nicotine dependence
CPT/HCPCS: 36415; 80053; 85025; 85730; 74177; 99285; 96360; Q9967

== ENCOUNTER 2023-06-24 08:47 | Inpatient (IN) | payer BC ==
[2023-06-24] MEDS ORDERED: SODIUM CHLORIDE 0.9% 1,000 ML IV STA ×2 (09:50→11:18)
[2023-06-24] MEDS ORDERED: HYDROCORTISONE SUPPOSITORY 25 MG SUPP RECTAL STA (09:50)
[2023-06-24 10:25] LABS: Basophils % (A) 1 %; Eosinophils # (A) 0.1 k/uL (0-0.7); Eosinophils % (A) 1 %; HCT 23.5 % (39.0-53.0); Lymphocytes % (A) 15 %; MCH 32.2 pg (25.0-35.0); MCHC 34.9 g/dL (31.0-37.0); MCV 92.3 fL (80.0-100.0); Mean Platelet Volume 10.1; Monocytes # (A) 0.4 k/uL (0-1.0); Monocytes % (A) 6 %; Neutrophils % (A) 76 %; Platelet Count 249 k/uL (150-450); RBC 2.54 m/uL (4.30-5.90); RDW 15.1 % (11.5-15.5); WBC 6.6 k/uL (3.8-10.6)
--- NOTE | 2023-06-24 10:25 | ED ---
GI Bleed HPI - General Chief complaint: GI Bleed Stated complaint: GI Bleed Time Seen by Provider: 06/24/23 09:32 Source: patient, RN notes reviewed Mode of arrival: wheelchair Limitations: no limitations - History of Present Illness Initial comments: This is a 52-year-old male who presents to the emergency department for rectal bleeding. Symptoms started 5 days ago. He was evaluated here 5 days ago when symptoms began. This is described as bright red blood. Not taking any blood thinners. He had negative blood work and negative imaging of the abdomen and pelvis and was discharged home with instructions to follow a clear liquid diet. He was advised that this may be due to an internal hemorrhoid or diverticulosis. States that the bleeding has persisted and worsened. It was initially only present when he was having bowel movements and was mixed in with the stool. He is now going to the bathroom and essentially only expelling blood into the toilet without stool mixed in. He continues to deny any abdominal pain, nausea, or vomiting. However, he feels weak and generally unwell. Denies any fevers, chills, sore throat, cough, dyspnea, chest pain, palpitations, abdominal pain, nausea, vomiting, back pain, or headaches. MD complaint: blood streaked stool, gross hematochezia - Related Data Home Medications Medication Instructions Recorded Confirmed Loratadine-Pseudoeph 10-240 mg 1 tab PO HS 10/16/20 06/24/23 [Claritin-D 24 Hour] Montelukast Sodium [Singulair] 10 mg PO HS 10/16/20 06/24/23 Allergies Allergy/AdvReac Type Severity Reaction Status Date / Time No Known Allergies Allergy Verified 06/24/23 14:16 Review of Systems ROS Statement: Those systems with pertinent positive or pertinent negative responses have been documented in the HPI. ROS Other: All systems not noted in ROS Statement are negative. Past Medical History Past Medical History: GI Bleed, Hyperlipidemia Additional Past Medical History / Comment(s): divereticulitis History of Any Multi-Drug Resistant Organisms: None Reported Additional Past Surgical History / Comment(s): parathyroid surgery Past Psychological History: No Psychological Hx Reported Smoking Status: Former smoker Past Alcohol Use History: Occasional Past Drug Use History: Marijuana General Exam Limitations: no limitations General appearance: alert, in no apparent distress Head exam: Present: atraumatic, normocephalic, normal inspection Respiratory exam: Present: normal lung sounds bilaterally. Absent: respiratory distress, wheezes, rales, rhonchi, stridor Cardiovascular Exam: Present: regular rate, normal rhythm, normal heart sounds. Absent: systolic murmur, diastolic murmur, rubs, gallop, clicks GI/Abdominal exam: Present: soft, normal bowel sounds. Absent: distended, tenderness, guarding, rebound, rigid Rectal exam: Present: normal inspection Neurological exam: Present: alert, oriented X3, CN II-XII intact Psychiatric exam: Present: normal affect, normal mood Skin exam: Present: warm, dry, intact, normal color. Absent: rash Course Vital Signs 06/24/23 06/24/23 06/24/23 08:53 10:48 13:38 Temperature 96.7 F L Pulse Rate 127 H 94 99 Respiratory 18 18 18 Rate Blood Pressure 115/78 115/79 129/84 O2 Sat by Pulse 100 100 99 Oximetry Medical Decision Making - Medical Decision Making This is a 52-year-old male who presents to the emergency department for rectal bleeding. Was pt. sent in by a medical professional or institution? @ -No Did you speak to anyone other than the patient for history? @ -No Did you review nursing and triage notes? @ -Yes, and I agree, it is accurate with regards to the patient's symptoms. Were old charts reviewed? @ -Computed tomography scan of the abdomen and pelvis from 06/20 demonstrating diverticulosis without any acute process. Differential Diagnosis? @ -Differential GI Bleed: Esophageal varices, aortoenteric fistula, Wendie-Mas, gastritis, peptic ulcer disease, diverticulosis, inflammatory bowel disease, hemorrhoids, fissure, colitis, malignancy, Meckels diverticulum, this is not meant to be an all- inclusive list. EKG interpreted by me (3pts min.)? @ -Not obtained X-rays interpreted by me (1pt min.)? @ -Not obtained CT interpreted by me (1pt min.)? @ -Not obtained U/S interpreted by me (1pt. min.)? @ -Not obtained What testing was considered but not performed? (CT, X-rays, U/S, labs)? Why? @ -None What meds were considered but not given? Why? @ -None Did you discuss the management of the patient with other professionals? @ -Yes, Dr. Love, who advised fluids, GoLYTELY prep, and keeping the patient NPO after midnight for possible colonoscopy in the morning. Dr. Correa accepts the patient for admission to medicine. Did you reconcile home meds? @ -Yes Was smoking cessation discussed for >3mins.? @ -No Was critical care preformed (if so, how long)? @ -No Were there social determinants of health that impacted care today? How? (Homelessness, low income, unemployed, alcoholism, drug addiction, transportation, low edu. Level, literacy, decrease access to med. care, snf, rehab)? @ -No Was there de-escalation of care discussed even if they declined? (Discuss DNR or withdrawal of care, Hospice)? @ -No What co-morbidities impacted this encounter? (DM, HTN, Smoking, COPD, CAD, Cancer, CVA, Hep., AIDS, mental health diagnosis, sleep apnea, morbid obesity)? @ -Diverticulosis Was patient admitted / discharged? @ -Admitted. Lab work obtained revealing a hemoglobin of 8.2. This has decreased when compared with 4-5 days ago when it was 14.2. Lab work was otherwise nonactionable. Computed tomography scan of the abdomen and pelvis from 06/20 demonstrated diverticulosis with no acute findings. I spoke with Dr. Love, general surgery, regarding the patient. He is comfortable managing a lower GI bleed here at this time. He advised fluids and a GoLYTELY prep with tentative plan for colonoscopy in the morning. Patient will be kept NPO after midnight. Patient admitted to medicine with GI as consult. Will plan to get serial hemoglobins as well. Undiagnosed new problem with uncertain prognosis? @ -None Drug Therapy requiring intensive monitoring for toxicity (Heparin, Nitro, Insulin, Cardizem)? @ -None Were any procedures done? @ -None Diagnosis/symptom? @ -Gross hematochezia, acute blood loss anemia Acute, or Chronic, or Acute on Chronic? @ -Acute Uncomplicated (without systemic symptoms) or Complicated (systemic symptoms)? @ -Uncomplicated Side effects of treatment? @ -None Exacerbation, Progression, or Severe Exacerbation] @ -Not applicable Poses a threat to life or bodily function? @ -Yes, if the bleeding persists it can become a life threatening issue. This case was discussed in detail with the attending ED physician, Dr. Chang. Presentation, findings, and treatment plan discussed in detail as well. - Lab Data Result diagrams: 06/24/23 15:42 06/24/23 10:08 Lab Results 06/24/23 06/24/23 06/24/23 Range/Units 10:08 10:08 10:08 WBC 6.6 (3.8-10.6) k/uL RBC 2.54 L (4.30-5.90) m/uL Hgb 8.2 L D (13.0-17.5) gm/dL Hct 23.5 L (39.0-53.0) % MCV 92.3 (80.0-100.0) fL MCH 32.2 (25.0-35.0) pg MCHC 34.9 (31.0-37.0) g/dL RDW 15.1 (11.5-15.5) % Plt Count 249 (150-450) k/uL MPV 10.1 Neutrophils % 76 % Lymphocytes % 15 % Monocytes % 6 % Eosinophils % 1 % Basophils % 1 % Neutrophils # 5.0 (1.3-7.7) k/uL Lymphocytes # 1.0 (1.0-4.8) k/uL Monocytes # 0.4 (0-1.0) k/uL Eosinophils # 0.1 (0-0.7) k/uL Basophils # 0.0 (0-0.2) k/uL PT 10.5 (9.0-12.0) sec INR 1.0 (<1.2) APTT 22.1 (22.0-30.0) sec Sodium 137 (137-145) mmol/L Potassium 4.0 (3.5-5.1) mmol/L Chloride 105 (98-107) mmol/L Carbon Dioxide 21 L (22-30) mmol/L Anion Gap 11 mmol/L BUN 13 (9-20) mg/dL Creatinine 1.02 (0.66-1.25) mg/dL Est GFR (CKD-EPI)AfAm >90 (>60 ml/min/1.73 sqM) Est GFR (CKD-EPI)NonAf 83 (>60 ml/min/1.73 sqM) Glucose 104 H (74-99) mg/dL Plasma Lactic Acid Lebron (0.7-2.0) mmol/L Calcium 8.8 (8.4-10.2) mg/dL Total Bilirubin 0.5 (0.2-1.3) mg/dL AST 27 (17-59) U/L ALT 19 (4-49) U/L Alkaline Phosphatase 38 (38-126) U/L C-Reactive Protein <0.5 (<1.0) mg/dL Total Protein 6.3 (6.3-8.2) g/dL Albumin 3.8 (3.5-5.0) g/dL 06/24/23 Range/Units 10:08 WBC (3.8-10.6) k/uL RBC (4.30-5.90) m/uL Hgb (13.0-17.5) gm/dL Hct (39.0-53.0) % MCV (80.0-100.0) fL MCH (25.0-35.0) pg MCHC (31.0-37.0) g/dL RDW (11.5-15.5) % Plt Count (150-450) k/uL MPV Neutrophils % % Lymphocytes % % Monocytes % % Eosinophils % % Basophils % % Neutrophils # (1.3-7.7) k/uL Lymphocytes # (1.0-4.8) k/uL Monocytes # (0-1.0) k/uL Eosinophils # (0-0.7) k/uL Basophils # (0-0.2) k/uL PT (9.0-12.0) sec INR (<1.2) APTT (22.0-30.0) sec Sodium (137-145) mmol/L Potassium (3.5-5.1) mmol/L Chloride (98-107) mmol/L Carbon Dioxide (22-30) mmol/L Anion Gap mmol/L BUN (9-20) mg/dL Creatinine (0.66-1.25) mg/dL Est GFR (CKD-EPI)AfAm (>60 ml/min/1.73 sqM) Est GFR (CKD-EPI)NonAf (>60 ml/min/1.73 sqM) Glucose (74-99) mg/dL Plasma Lactic Acid Lebron 1.2 (0.7-2.0) mmol/L Calcium (8.4-10.2) mg/dL Total Bilirubin (0.2-1.3) mg/dL AST (17-59) U/L ALT (4-49) U/L Alkaline Phosphatase (38-126) U/L C-Reactive Protein (<1.0) mg/dL Total Protein (6.3-8.2) g/dL Albumin (3.5-5.0) g/dL Disposition Clinical Impression: Hematochezia, Acute blood loss anemia Disposition: ADMITTED IP TO THIS HOSP
[2023-06-24 10:28] LABS: HGB 8.2 gm/dL (13.0-17.5)
[2023-06-24 10:32] LABS: Partial Thromboplastin Time 22.1 sec (22.0-30.0); Prothrombin Time 10.5 sec (9.0-12.0)
[2023-06-24 10:46] LABS: ALT 19 U/L (4-49); AST 27 U/L (17-59); African American GFR (CKD) >90 (>60 ml/min/1.73 sqM); Albumin 3.8 g/dL (3.5-5.0); Alkaline Phosphatase 38 U/L (38-126); Anion Gap 11 mmol/L; Blood Urea Nitrogen 13 mg/dL (9-20); C Reactive Protein <0.5 mg/dL (<1.0); Calcium 8.8 mg/dL (8.4-10.2); Carbon Dioxide 21 mmol/L (22-30); Chloride 105 mmol/L (98-107); Glucose 104 mg/dL (74-99); Non-African American GFR(CKD) 83 (>60 ml/min/1.73 sqM); Sodium 137 mmol/L (137-145); Total Bilirubin 0.5 mg/dL (0.2-1.3); Total Protein 6.3 g/dL (6.3-8.2)
[2023-06-24] MEDS ORDERED: ACETAMINOPHEN TAB 325 MG TAB PO PRN (11:44)
[2023-06-24] MEDS ORDERED: NALOXONE 0.4 MG/ML 1 ML VIAL IV PRN (11:44)
[2023-06-24] MEDS ORDERED: HYDROcodone/APAP 5-325MG 1 EACH TAB PO PRN (11:44)
[2023-06-24] MEDS ORDERED: ONDANSETRON 4 MG/2 ML VIAL IVP PRN (11:44)
[2023-06-24] MEDS ORDERED: PEG 3350 (236 GM/BTL) + LYTES 4,000 ML BOTTLE PO ONE (12:00)
[2023-06-24] MEDS: SODIUM CHLORIDE 0.9% 1,000 ML IV SCH (12:37)
[2023-06-24] MEDS: PANTOPRAZOLE 40 MG/10 ML VIAL IV SCH (13:32)
--- NOTE | 2023-06-24 14:17 | P.HPIM ---
History of Present Illness H&P Date: 06/24/23 Chief Complaint: GI bleed * 52-year-old and pelvis with past medical history significant for obstructive sleep apnea, gastroesophageal reflux disease presented to the emergency department with complains of bright red blood per rectum. * Patient states his symptom onset was 5 days ago patient had bright red blood in stool. Patient states he had a CT abdomen pelvis done on 06/20/23 which was negative. He was told to take a clear liquid diet and could be secondary to hemorrhoidal bleed. Patient said her bleeding persisted and he ultimately decided to come to the emergency * Workup initiated including CBC which showed a hemoglobin of 8.2, most recent hemoglobin was 14.2 checked on 06/19/23. * Serum chemistry obtained showed sodium of 137 potassium of 4 chloride of 105, next a 21 BUN 13 1.0 to lactic acid 1.2 * [facility] nurse surgery team was called and they accepted the patient for colonoscopy to be scheduled on 06/25. Patient to be started on clear liquid diet and bowel prep REVIEW OF SYSTEMS: Right red blood per rectum CONSTITUTIONAL: No fever, no malaise, no fatigue. HEENT: No recent visual problems or hearing problems. Denied any sore throat. CARDIOVASCULAR: No chest pain, orthopnea, PND, no palpitations, no syncope. PULMONARY: No shortness of breath, no cough, no hemoptysis. GASTROINTESTINAL: No diarrhea, no nausea, no vomiting, no abdominal pain. NEUROLOGICAL: No headaches, no weakness, no numbness. HEMATOLOGICAL: Denies any bleeding or petechiae. GENITOURINARY: Denies any burning micturition, frequency, or urgency. MUSCULOSKELETAL/RHEUMATOLOGICAL: Denies any joint pain, swelling, or any muscle pain. ENDOCRINE: Denies any polyuria or polydipsia. PHYSICAL EXAMINATION: GENERAL: The patient is alert and oriented x3, not in any acute distress. Well developed, well nourished. HEENT: Pupils are round and equally reacting to light. EOMI. No scleral icterus. No conjunctival pallor. Normocephalic, atraumatic. No pharyngeal erythema. No thyromegaly. CARDIOVASCULAR: S1 and S2 present. No murmurs, rubs, or gallops. PULMONARY: Chest is clear to auscultation, no wheezing or crackles. ABDOMEN: Soft, nontender, nondistended, normoactive bowel sounds. No palpable organomegaly. MUSCULOSKELETAL: No joint swelling or deformity. EXTREMITIES: No cyanosis, clubbing, or pedal edema. NEUROLOGICAL: Gross neurological examination did not reveal any focal deficits. SKIN: No rashes. Past Medical History Past Medical History: GI Bleed, Hyperlipidemia Additional Past Medical History / Comment(s): divereticulitis History of Any Multi-Drug Resistant Organisms: None Reported Additional Past Surgical History / Comment(s): parathyroid surgery Past Psychological History: No Psychological Hx Reported Smoking Status: Former smoker Past Alcohol Use History: Occasional Past Drug Use History: Marijuana Medications and Allergies Home Medications Medication Instructions Recorded Confirmed Type Loratadine-Pseudoeph 10-240 mg 1 tab PO HS 10/16/20 06/24/23 History [Claritin-D 24 Hour] Montelukast Sodium [Singulair] 10 mg PO HS 10/16/20 06/24/23 History Allergies Allergy/AdvReac Type Severity Reaction Status Date / Time No Known Allergies Allergy Verified 06/24/23 14:16 Physical Exam Vitals: Vital Signs Temp Pulse Resp BP Pulse Ox 06/24/23 13:38 99 18 129/84 99 06/24/23 10:48 94 18 115/79 100 06/24/23 08:53 96.7 F L 127 H 18 115/78 100 Intake and Output 06/23/23 06/24/23 06/24/23 22:59 06:59 14:59 Other: Weight 81.647 kg Results CBC & Chem 7: 06/24/23 10:08 06/24/23 10:08 Labs: Abnormal Lab Results - Last 24 Hours (Table) 06/24/23 06/24/23 Range/Units 10:08 10:08 RBC 2.54 L (4.30-5.90) m/uL Hgb 8.2 L D (13.0-17.5) gm/dL Hct 23.5 L (39.0-53.0) % Carbon Dioxide 21 L (22-30) mmol/L Glucose 104 H (74-99) mg/dL Thrombosis Risk Factor Assmnt - DVT/VTE Prophylaxis DVT/VTE Prophylaxis: Mechanical Prophylaxis ordered Assessment and Plan Assessment: Assessment and plan * Bright red blood per rectum suspect lower gastrointestinal bleed * Acute blood loss anemia * History of seasonal ALLERGIES * In regards to blood loss anemia, lower GI bleed H&H ordered every 6 hours/type and screen ordered * Transfuse if hemoglobin less than 7 on hemodynamically unstable * Continue patient on IV Protonix * Continue clear liquid diet, general surgery consulted plan for colonoscopy tomorrow * CODE STATUS is full code
[2023-06-24 16:25] LABS: HCT 21.9 % (39.0-53.0); HGB 7.4 gm/dL (13.0-17.5); MCH 31.9 pg (25.0-35.0); MCHC 33.7 g/dL (31.0-37.0); MCV 94.9 fL (80.0-100.0); Mean Platelet Volume 9.8; Platelet Count 253 k/uL (150-450); RBC 2.31 m/uL (4.30-5.90); RDW 15.4 % (11.5-15.5); WBC 8.7 k/uL (3.8-10.6)
[2023-06-24] MEDS: MONTELUKAST 10 MG TAB PO SCH (21:26)
[2023-06-24] MEDS: LORATADINE-PSEUDOEPH 5-120 MG 1 EACH TAB.ER.12H PO SCH (21:26)
[2023-06-25 01:13] LABS: Anisocytosis Slight; Basophils % (A) 0 %; Eosinophils # (A) 0.2 k/uL (0-0.7); Eosinophils % (A) 3 %; Lymphocytes # (A) 1.6 k/uL (1.0-4.8); Lymphocytes % (A) 22 %; MCH 31.5 pg (25.0-35.0); MCHC 33.6 g/dL (31.0-37.0); MCV 93.6 fL (80.0-100.0); Mean Platelet Volume 9.4; Monocytes # (A) 0.5 k/uL (0-1.0); Monocytes % (A) 6 %; Neutrophils # (A) 4.8 k/uL (1.3-7.7); Neutrophils % (A) 67 %; Platelet Count 223 k/uL (150-450); RDW 16.2 % (11.5-15.5); WBC 7.2 k/uL (3.8-10.6)
[2023-06-25 01:20] LABS: HCT 18.7 % (39.0-53.0); HGB 6.3 gm/dL (13.0-17.5)
[2023-06-25] MEDS: LORATADINE-PSEUDOEPH 5-120 MG 1 EACH TAB.ER.12H PO SCH ×2 (09:11→20:37)
[2023-06-25] MEDS: SODIUM CHLORIDE 0.9% 1,000 ML IV SCH (09:22)
[2023-06-25] MEDS: PANTOPRAZOLE 40 MG/10 ML VIAL IV SCH (09:22)
--- NOTE | 2023-06-25 11:33 | P.PN ---
Subjective Progress Note Date: 06/25/23 * 52-year-old and pelvis with past medical history significant for obstructive sleep apnea, gastroesophageal reflux disease presented to the emergency department with complains of bright red blood per rectum. * Patient states his symptom onset was 5 days ago patient had bright red blood in stool. Patient states he had a CT abdomen pelvis done on 06/20/23 which was negative. He was told to take a clear liquid diet and could be secondary to hemorrhoidal bleed. Patient said her bleeding persisted and he ultimately decided to come to the emergency * Workup initiated including CBC which showed a hemoglobin of 8.2, most recent hemoglobin was 14.2 checked on 06/19/23. * Serum chemistry obtained showed sodium of 137 potassium of 4 chloride of 105, next a 21 BUN 13 1.0 to lactic acid 1.2 * [facility] surgery team was called and they accepted the patient for colonoscopy to be scheduled on 06/25. Patient to be started on clear liquid diet and bowel prep * 06/25/23: Patient seen and evaluated in emergency department room 22., at bedside as well. Patient completed bowel prep. No more bright red blood no sawyer in stool. Follow-up H&H does show hemoglobin of 6.3. A follow-up H&H has been ordered patient was given 2 units of packed RBC. Patient remains hemodynamically stable. Surgery team to perform colonoscopy today. Continue to monitor for hypotension and recurrent bleed. Care plan discussed with patient in detail. Afebrile temperature is 98.3 heart rate 93 blood pressure 1 34 x 84. PER [address] [place] [address] staff request requested ICU evaluation for close monitoring. Objective - Vital Signs Vital signs: Vital Signs Temp 98.3 F 06/25/23 09:09 Pulse 93 06/25/23 09:09 Resp 16 06/25/23 09:09 BP 134/84 06/25/23 09:09 Pulse Ox 100 06/25/23 09:09 FiO2 Intake & Output 06/24/23 06/25/23 06/25/23 18:59 06:59 18:59 Intake Total 310 340 Balance 310 340 Weight 81.647 kg 81.647 kg Intake: IV 30 Invasive Line 1 10 Sodium Chloride 0.9% 1, 20 000 ml @ 20 mls/hr IV . Q24H [facility] Rx#:[id number] Blood Product 310 310 Rc As-1 Unit 310 [id number] Rc As-1 Unit 0 310 [id number] Other: # Voids 2 # Bowel Movements 0 - Exam PHYSICAL EXAMINATION: GENERAL: The patient is alert and oriented x3, not in any acute distress. Well developed, well nourished. HEENT: Pupils are round and equally reacting to light. EOMI. No scleral icterus. No conjunctival pallor. Normocephalic, atraumatic. No pharyngeal erythema. No thyromegaly. CARDIOVASCULAR: S1 and S2 present. No murmurs, rubs, or gallops. PULMONARY: Chest is clear to auscultation, no wheezing or crackles. ABDOMEN: Soft, nontender, nondistended, normoactive bowel sounds. No palpable organomegaly. MUSCULOSKELETAL: No joint swelling or deformity. EXTREMITIES: No cyanosis, clubbing, or pedal edema. NEUROLOGICAL: Gross neurological examination did not reveal any focal deficits. SKIN: No rashes. - Labs CBC & Chem 7: 06/25/23 00:50 06/24/23 10:08 Labs: Abnormal Lab Results - Last 24 Hours (Table) 06/24/23 06/24/23 06/25/23 Range/Units 15:42 15:46 00:50 RBC 2.31 L 2.00 L (4.30-5.90) m/uL Hgb 7.4 L 6.3 L* (13.0-17.5) gm/dL Hct 21.9 L 18.7 L* (39.0-53.0) % RDW 16.2 H (11.5-15.5) % Crossmatch See Detail Assessment and Plan Assessment: Assessment and plan * Bright red blood per rectum suspect lower gastrointestinal bleed * Acute blood loss anemia * History of seasonal ALLERGIES * In regards to blood loss anemia, lower GI bleed H&H ordered every 6 hours/type and screen ordered * Status post 2 units of packed RBC 06/25, follow-up H&H ordered * Continue patient on IV Protonix * Continue clear liquid diet, general surgery consulted plan for colonoscopy today * Requested ICU team to evaluate secondary to ongoing GI bleed in significant drop in hemoglobin * CODE STATUS is full code
[2023-06-25] MEDS ORDERED: DEXTROSE 50% SYRINGE 50 ML IVP ONE (11:55)
[2023-06-25 11:56] LABS: Glucose,Whole Blood 62 mg/dL (70-110)
[2023-06-25 12:05] LABS: Glucose,Whole Blood 151 mg/dL (70-110)
--- NOTE | 2023-06-25 13:31 | P.GSCN ---
History of Present Illness Consult date: 06/25/23 History of present illness: CHIEF COMPLAINT: GI Bleed HISTORY OF PRESENT ILLNESS: This is a 52-year-old male who presented to the ER with concerns for rectal bleeding. Patient does have a history of diverticulosis and hemorrhoids. He reports his last colonoscopy 6 years ago and had colon polyps removed. He reports the blood have been more bright red blood for about 5 days. He reports at times there had been a large amount of blood. He denies any abdominal pain. Denies any nausea or vomiting. Initially came into the ER on 06/20/2023 and CAT scan done at that time each in no acute findings in the abdomen or pelvis. It did report diverticulosis. Patient d ischarged from ER and was told to return if symptoms worsen. And patient reports that the bleeding did worsen. He came back to the ER with a hemoglobin of 8.2. On 06/19/2023 hemoglobin was 14.2. Hemoglobin today has dropped to 6.3 and he has received 2 units of blood. Patient did undergo the [employer] bowel prep yesterday. He denies being on any blood thinners. PAST MEDICAL HISTORY: GI bleed, diverticulosis, hyperlipidemia PAST SURGICAL HISTORY: Parathyroid surgery MEDICATIONS: See below ALLERGIES: See below SOCIAL HISTORY: No illicit drug use. REVIEW OF SYSTEMS: CONSTITUTIONAL: Denies fever or chills. HEENT: Denies blurred vision, vision changes, or eye pain. Denies hemoptysis CARDIOVASCULAR: Denies chest pain or pressure. RESPIRATORY: No shortness of breath. GASTROINTESTINAL: See HPI for pertinent findings HEMATOLOGIC: Denies bleeding disorders. GENITOURINARY: Denies any blood in urine or increased urinary frequency. SKIN: Denies pruitis. Denies rash. PHYSICAL EXAM: VITAL SIGNS: Reviewed GENERAL: Well-developed in no acute distress. HEENT: No sclera icterus. Extraocular movements grossly intact. Moist buccal mucosa. Head is atraumatic, normocephalic. No nasal drainage. ABDOMEN: Soft. Nondistended. Nontender NEUROLOGIC: Alert and oriented. Cranial nerves II through XII grossly intact. LABORATORY DATA: WBC 7.2 Hgb 6.3 platelets 223 Sodium 137 potassium 4.0 creatinine 1.02 IMAGING: Computed tomography scan abdomen and pelvis from 06/20/2023 reports no acute findings ASSESSMENT: 1. Acute GI bleed with bright red blood per rectum 2. Acute blood loss anemia requiring blood transfusion 3. History of diverticulosis 4. History of hemorrhoids PLAN: -Patient scheduled for colonoscopy today with Dr. penaloza -Keep patient nothing by mouth -Continue IV fluids -Continue to monitor hemoglobin -Continue monitoring for any signs or symptoms of bleeding Physician [employer] Testing Laboratory Technician note has been reviewed by physician. Signing provider agrees with the documented findings, assessment, and plan of care. Past Medical History Past Medical History: GI Bleed, Hyperlipidemia Additional Past Medical History / Comment(s): divereticulitis History of Any Multi-Drug Resistant Organisms: None Reported Additional Past Surgical History / Comment(s): parathyroid surgery Past Psychological History: No Psychological Hx Reported Smoking Status: Former smoker Past Alcohol Use History: Occasional Past Drug Use History: Marijuana Medications and Allergies Home Medications Medication Instructions Recorded Confirmed Type Loratadine-Pseudoeph 10-240 mg 1 tab PO HS 10/16/20 06/24/23 History [Claritin-D 24 Hour] Montelukast Sodium [Singulair] 10 mg PO HS 10/16/20 06/24/23 History Allergies Allergy/AdvReac Type Severity Reaction Status Date / Time No Known Allergies Allergy Verified 06/24/23 14:16 Surgical - Exam Vital Signs Temp Pulse Resp BP Pulse Ox 96.7 F L 127 H 18 115/78 100 06/24/23 08:53 06/24/23 08:53 06/24/23 08:53 06/24/23 08:53 06/24/23 08:53 Results - Labs 06/25/23 00:50 06/24/23 10:08 Abnormal Lab Results - Last 24 Hours (Table) 06/24/23 06/24/23 06/24/23 Range/Units 10:08 10:08 15:42 RBC 2.54 L 2.31 L (4.30-5.90) m/uL Hgb 8.2 L D 7.4 L (13.0-17.5) gm/dL Hct 23.5 L 21.9 L (39.0-53.0) % RDW (11.5-15.5) % Carbon Dioxide 21 L (22-30) mmol/L Glucose 104 H (74-99) mg/dL Crossmatch 06/24/23 06/25/23 Range/Units 15:46 00:50 RBC 2.00 L (4.30-5.90) m/uL Hgb 6.3 L* (13.0-17.5) gm/dL Hct 18.7 L* (39.0-53.0) % RDW 16.2 H (11.5-15.5) % Carbon Dioxide (22-30) mmol/L Glucose (74-99) mg/dL Crossmatch See Detail Diabetes panel 06/24/23 Range/Units 10:08 Sodium 137 (137-145) mmol/L Potassium 4.0 (3.5-5.1) mmol/L Chloride 105 (98-107) mmol/L Carbon Dioxide 21 L (22-30) mmol/L BUN 13 (9-20) mg/dL Creatinine 1.02 (0.66-1.25) mg/dL Glucose 104 H (74-99) mg/dL Calcium 8.8 (8.4-10.2) mg/dL AST 27 (17-59) U/L ALT 19 (4-49) U/L Alkaline Phosphatase 38 (38-126) U/L Total Protein 6.3 (6.3-8.2) g/dL Albumin 3.8 (3.5-5.0) g/dL Calcium panel 06/24/23 Range/Units 10:08 Calcium 8.8 (8.4-10.2) mg/dL Albumin 3.8 (3.5-5.0) g/dL Pituitary panel 06/24/23 Range/Units 10:08 Sodium 137 (137-145) mmol/L Potassium 4.0 (3.5-5.1) mmol/L Chloride 105 (98-107) mmol/L Carbon Dioxide 21 L (22-30) mmol/L BUN 13 (9-20) mg/dL Creatinine 1.02 (0.66-1.25) mg/dL Glucose 104 H (74-99) mg/dL Calcium 8.8 (8.4-10.2) mg/dL Adrenal panel 06/24/23 Range/Units 10:08 Sodium 137 (137-145) mmol/L Potassium 4.0 (3.5-5.1) mmol/L Chloride 105 (98-107) mmol/L Carbon Dioxide 21 L (22-30) mmol/L BUN 13 (9-20) mg/dL Creatinine 1.02 (0.66-1.25) mg/dL Glucose 104 H (74-99) mg/dL Calcium 8.8 (8.4-10.2) mg/dL Total Bilirubin 0.5 (0.2-1.3) mg/dL AST 27 (17-59) U/L ALT 19 (4-49) U/L Alkaline Phosphatase 38 (38-126) U/L Total Protein 6.3 (6.3-8.2) g/dL Albumin 3.8 (3.5-5.0) g/dL
[2023-06-25 14:03] LABS: African American GFR (CKD) >90 (>60 ml/min/1.73 sqM); Anion Gap 11 mmol/L; Blood Urea Nitrogen 8 mg/dL (9-20); Calcium 8.1 mg/dL (8.4-10.2); Carbon Dioxide 18 mmol/L (22-30); Chloride 106 mmol/L (98-107); Glucose 122 mg/dL (74-99); Non-African American GFR(CKD) >90 (>60 ml/min/1.73 sqM); Sodium 135 mmol/L (137-145)
[2023-06-25 14:05] LABS: Potassium 5.7 mmol/L (3.5-5.1)
[2023-06-25 14:24] LABS: Basophils % (A) 0 %; Eosinophils # (A) 0.1 k/uL (0-0.7); Eosinophils % (A) 1 %; HCT 31.6 % (39.0-53.0); Lymphocytes # (A) 1.3 k/uL (1.0-4.8); Lymphocytes % (A) 15 %; MCH 31.7 pg (25.0-35.0); MCHC 34.3 g/dL (31.0-37.0); MCV 92.3 fL (80.0-100.0); Mean Platelet Volume 11.2; Monocytes # (A) 0.5 k/uL (0-1.0); Monocytes % (A) 6 %; Neutrophils # (A) 6.8 k/uL (1.3-7.7); Neutrophils % (A) 77 %; Platelet Count 155 k/uL (150-450); Poikilocytosis Slight; RBC 3.42 m/uL (4.30-5.90); RDW 15.5 % (11.5-15.5); WBC 8.8 k/uL (3.8-10.6)
--- NOTE | 2023-06-25 14:48 | P.CNPUL ---
History of Present Illness Consult date: 06/25/23 Requesting physician: Oneyda Correa Reason for consult: other (ICU management) Chief complaint: Bright red blood per rectum History of present illness: This is a 52-year-old white male with history of diverticulosis and hemorrhoids, his last colonoscopy was about 6 years ago, and he had polyps removed. For the last 5 days, the patient has been noticing bright red blood per rectum. Not associated with any nausea or vomiting, and no hematemesis. No abdominal pain, he was in the ER last on 06/2023, and workup was basically unremarkable, hemoglobin was 14.2. Since then the hemoglobin dropped down to 6.3, patient received 2 units of packed RBCs in the ER, he was seen by GI, and he is maru eduled to undergo colonoscopy later this afternoon. Repeat hemoglobin after 2 units of packed RBCs were given came up to 10.8. The rest of the labs were basically unremarkable except for slightly elevated potassium of 5.7. Considering the hemoglobin being as low as it is this consult was initiated, and I admitted the patient to the ICU. Review of Systems CONSTITUTIONAL: Denies fever or chills. HEENT: Denies blurred vision, vision changes, or eye pain. Denies hemoptysis CARDIOVASCULAR: Denies chest pain or pressure. RESPIRATORY: No shortness of breath. GASTROINTESTINAL: As noted in HPI HEMATOLOGIC: Denies bleeding disorders. GENITOURINARY: Denies any blood in urine or increased urinary frequency. SKIN: Denies pruitis. Denies rash. Psychiatric: Negative Neurologic: Negative Past Medical History Past Medical History: GI Bleed, Hyperlipidemia Additional Past Medical History / Comment(s): divereticulitis History of Any Multi-Drug Resistant Organisms: None Reported Additional Past Surgical History / Comment(s): parathyroid surgery Past Anesthesia/Blood Transfusion Reactions: No Reported Reaction Past Psychological History: No Psychological Hx Reported Smoking Status: Former smoker Past Alcohol Use History: Occasional Past Drug Use History: Marijuana Medications and Allergies Home Medications Medication Instructions Recorded Confirmed Type Loratadine-Pseudoeph 10-240 mg 1 tab PO HS 10/16/20 06/24/23 History [Claritin-D 24 Hour] Montelukast Sodium [Singulair] 10 mg PO HS 10/16/20 06/24/23 History Allergies Allergy/AdvReac Type Severity Reaction Status Date / Time No Known Allergies Allergy Verified 06/24/23 14:16 Physical Exam Vitals: Vital Signs Temp Pulse Pulse Resp BP BP Pulse Ox 06/25/23 13:00 89 12 133/84 98 06/25/23 12:20 95 15 133/84 97 06/25/23 12:10 102 H 16 97 06/25/23 12:00 97.7 F 85 12 144/86 98 06/25/23 11:54 43 H 06/25/23 09:09 98.3 F 93 16 134/84 100 06/25/23 08:00 98.2 F 88 16 126/88 100 06/25/23 07:00 98.2 F 76 18 122/76 98 06/25/23 06:32 98.2 F 70 18 126/88 100 06/25/23 06:12 98.2 F 81 18 133/80 06/25/23 06:04 98.2 F 77 18 126/88 06/25/23 05:55 98.4 F 76 18 126/73 06/25/23 05:53 98.2 F 76 18 126/73 06/25/23 05:43 98.2 F 76 18 126/73 06/25/23 04:50 97.9 F 85 18 135/75 100 06/25/23 04:30 98.3 F 90 18 128/78 99 06/25/23 04:19 97.8 F 93 16 154/83 98 06/25/23 04:12 97.8 F 116 H 18 154/83 98 06/25/23 02:13 97.8 F 78 18 136/83 99 06/24/23 21:29 87 20 131/76 100 06/24/23 18:00 98.0 F 78 20 128/79 99 Intake and Output 06/24/23 06/25/23 06/25/23 22:59 06:59 14:59 Intake Total 310 420 Balance 310 420 Intake: IV 110 Invasive Line 1 30 Sodium Chloride 0.9% 1, 80 000 ml @ 20 mls/hr IV . Q24H [facility] Rx#:[id number] Blood Product 310 310 Rc As-1 Unit 310 [id number] Rc As-1 Unit 0 310 [id number] Other: Voiding Method Urinal # Voids 0 # Bowel Movements 0 Weight 81.647 kg Physical Exam: Revealed 52-year-old male in no distress Head: Atraumatic normocephalic HEENT:[Neck is supple.] [No neck masses.] [No thyromegaly.] [No JVD.] Chest: [Clear throughout, no crackles, no rhonchi, no wheezes.] Cardiac Exam: [Normal S1 and S2, no S3 gallop, no murmur.] Abdomen: [Soft, nontender, no megaly, no rebound, no guarding, normal bowel sounds.] Extremities: [No clubbing, no edema, no cyanosis.] Neurological Exam: [No focal neurologic deficit.] Alert oriented 3 Psychiatric: Normal mood affect and normal mental status examination. Skin: No rashes. Results - Laboratory Findings CBC and BMP: 06/25/23 11:00 06/25/23 11:00 PT/INR, D-dimer PT 10.5 sec (9.0-12.0) 06/24/23 10:08 INR 1.0 (<1.2) 06/24/23 10:08 Abnormal lab findings: Abnormal Labs 06/24/23 06/24/23 06/24/23 10:08 10:08 15:42 RBC 2.54 L 2.31 L Hgb 8.2 L D 7.4 L Hct 23.5 L 21.9 L RDW Sodium Potassium Carbon Dioxide 21 L BUN Glucose 104 H POC Glucose (mg/dL) Calcium Crossmatch 06/24/23 06/25/23 06/25/23 15:46 00:50 11:00 RBC 2.00 L 3.42 L Hgb 6.3 L* 10.8 L D Hct 18.7 L* 31.6 L RDW 16.2 H Sodium Potassium Carbon Dioxide BUN Glucose POC Glucose (mg/dL) Calcium Crossmatch See Detail 06/25/23 06/25/23 06/25/23 11:00 11:54 12:04 RBC Hgb Hct RDW Sodium 135 L Potassium 5.7 H Carbon Dioxide 18 L BUN 8 L Glucose 122 H POC Glucose (mg/dL) 62 L 151 H Calcium 8.1 L Crossmatch Assessment and Plan Assessment: Impression: Acute lower GI bleeding with bright red blood per rectum Acute blood loss anemia Seasonal ALLERGIC rhinitis Recommendation: Agree with colonoscopy Agree with blood transfusion since the patient had a significant drop in hemoglobin over the last 1 week. Agree with managing the patient in the ICU for the next 24 hours We will continue to follow continue Protonix Resume home meds Time with Patient: Greater than 30
[2023-06-25 14:58] LABS: HGB 10.8 gm/dL (13.0-17.5)
[2023-06-25 15:29] LABS: Poikilocytosis (M) Present
[2023-06-25] MEDS ORDERED: LIDOCAINE 1% INJ 10MG/ML (20 ML MDV) ONE (16:13)
[2023-06-25] MEDS ORDERED: PROPOFOL 10 MG/ML 20 ML VIAL IV ONE (16:13)
[2023-06-25 16:17] LABS: HCT 25.8 % (39.0-53.0); MCH 32.1 pg (25.0-35.0); MCHC 34.2 g/dL (31.0-37.0); Mean Platelet Volume 9.4; Platelet Count 260 k/uL (150-450); Poikilocytosis Slight; RBC 2.75 m/uL (4.30-5.90); RDW 15.6 % (11.5-15.5); WBC 10.4 k/uL (3.8-10.6)
[2023-06-25] MEDS ORDERED: IV FLUID CONTINUATION 1,000 ML IV ONE (16:23)
[2023-06-25] MEDS ORDERED: LACTATED RINGERS 1,000 ML IV ONE (16:39)
--- NOTE | 2023-06-25 16:39 | P.OP ---
Date of Procedure: 06/25/23 Preoperative Diagnosis: GI bleed Postoperative Diagnosis: Antral gastritis Hiatal hernia Mild esophagitis Presumed diverticular bleeding Procedure(s) Performed: EGD Colonoscopy Anesthesia: MAC Surgeon: Cale Love Pathology: other (Antrum, esophagus) Condition: critical Description of Procedure: The patient's placed on the endoscopy table in the lateral position. He received IV sedation. The gastroscope placed oropharynx. And was then placed in the esophagus and the stomach. Scope was placed through the pylorus and the duodenum. The first and second portion of the duodenum appeared normal. Scope was then brought back the antrum this appeared inflamed. A biopsies performed. Scope was unretroflexed and remainder the stomach appeared normal. Patient had a sliding hiatal hernia. The GE junction was at 38 cm. The distal esophagus appeared mildly inflamed. The proximal esophagus appeared normal. Scope w ithdrawn for patient. Next, digital rectal exam was performed. There was a large amount of blood in the anus. The flexible colonoscope was then placed patient anus and into the rectum. There was a large amount of blood in the rectum. The scope was advanced into the sigmoid colon there is a large amount of blood and clots. The scope could not be advanced beyond this due to poor visibility. At this point scope withdrawn. A large amount of blood was evacuated. Patient was sent to the ICU in guarded condition. He'll receive 2 units of packed red cells. He'll also scheduled for a tagged RBC scan
[2023-06-25 16:52] LABS: HGB 8.8 gm/dL (13.0-17.5)
[2023-06-25] MEDS ORDERED: SODIUM CHLORIDE 0.9% 1,000 ML IV SCH (19:00)
[2023-06-25 20:23] LABS: HGB 10.4 gm/dL (13.0-17.5); MCHC 34.5 g/dL (31.0-37.0); MCV 92.8 fL (80.0-100.0); Mean Platelet Volume 9.5; Platelet Count 214 k/uL (150-450); RBC 3.24 m/uL (4.30-5.90); RDW 14.9 % (11.5-15.5); WBC 11.3 k/uL (3.8-10.6)
[2023-06-25 20:26] LABS: ALT 16 U/L (4-49); AST 29 U/L (17-59); African American GFR (CKD) >90 (>60 ml/min/1.73 sqM); Albumin 3.1 g/dL (3.5-5.0); Alkaline Phosphatase 30 U/L (38-126); Anion Gap 8 mmol/L; Blood Urea Nitrogen 5 mg/dL (9-20); Calcium 7.7 mg/dL (8.4-10.2); Carbon Dioxide 18 mmol/L (22-30); Chloride 110 mmol/L (98-107); Glucose 78 mg/dL (74-99); Non-African American GFR(CKD) >90 (>60 ml/min/1.73 sqM); Potassium 3.9 mmol/L (3.5-5.1); Sodium 136 mmol/L (137-145); Total Bilirubin 1.4 mg/dL (0.2-1.3); Total Protein 5.1 g/dL (6.3-8.2)
[2023-06-25 20:28] LABS: INR 1.1 (<1.2); Partial Thromboplastin Time 24.8 sec (22.0-30.0)
[2023-06-25] MEDS ORDERED: CALCIUM GLUCONATE IN NACL 2 GM in SALINE 1 100ML.BAG IVPB ONE (20:30)
[2023-06-25] MEDS: MONTELUKAST 10 MG TAB PO SCH (20:37)
[2023-06-26 03:43] VITALS: BP 131/81; PULSE 79; RESP 24; TEMP 98.3
--- NOTE | 2023-06-26 08:38 | P.DS ---
Providers Date of admission: 06/24/23 11:22 Attending physician: Oneyda Correa MD Consults: 06/24/23 11:44 Consult Physician Urgent Consulting Provider: Cale Love Consult Reason/Comments: hematochezia Do you want consulting provider notified?: Already Contacted 06/25/23 10:12 Consult Physician Urgent Consulting Provider: Rodrick Staples Consult Reason/Comments: gi bleed, hgb 6.3, active, poss need for ICU? Do you want consulting provider notified?: Yes Primary care physician: [facility] Course: * 52-year-old and pelvis with past medical history significant for obstructive sleep apnea, gastroesophageal reflux disease presented to the emergency department with complains of bright red blood per rectum. * Patient states his symptom onset was 5 days ago patient had bright red blood in stool. Patient states he had a CT abdomen pelvis done on 06/20/23 which was negative. He was told to take a clear liquid diet and could be secondary to hemorrhoidal bleed. Patient said her bleeding persisted and he ultimately decided to come to the emergency * Workup initiated including CBC which showed a hemoglobin of 8.2, most recent hemoglobin was 14.2 checked on 06/19/23. * Serum chemistry obtained showed sodium of 137 potassium of 4 chloride of 105, next a 21 BUN 13 1.0 to lactic acid 1.2 * call center associate surgery team was called and they accepted the patient for colonoscopy to be scheduled on 06/25. Patient to be started on clear liquid diet and bowel prep * 06/25/23: Patient seen and evaluated in emergency department room 22., at bedside as well. Patient completed bowel prep. No more bright red blood noted in stool. Follow-up H&H does show hemoglobin of 6.3. A follow-up H&H has been ordered patient was given 2 units of packed RBC. Patient remains hemodynamically stable. Surgery team to perform colonoscopy today. Continue to monitor for hypotension and recurrent bleed. Care plan discussed with patient in detail. Afebrile temperature is 98.3 heart rate 93 blood pressure 1 34 x 84. PER 3 [facility] staff request requested ICU evaluation for close monitoring. * Patient had significant bleeding, EGD was completed, colonoscopy unable to review secondary to excessive blood. CT angiography was ordered. Patient was given additional 2 units while in ICU. Total 4 units given. H&H ordered. Any for [facility] called for transfer for GI and interventional radiology evaluation. Patient discharged and transferred in a stable condition * * PHYSICAL EXAMINATION: Exam during morning rounds GENERAL: The patient is alert and oriented x3, not in any acute distress. Well developed, well nourished. HEENT: Pupils are round and equally reacting to light. EOMI. No scleral icterus. No conjunctival pallor. Normocephalic, atraumatic. No pharyngeal erythema. No th yromegaly. CARDIOVASCULAR: S1 and S2 present. No murmurs, rubs, or gallops. PULMONARY: Chest is clear to auscultation, no wheezing or crackles. ABDOMEN: Soft, nontender, nondistended, normoactive bowel sounds. No palpable organomegaly. MUSCULOSKELETAL: No joint swelling or deformity. EXTREMITIES: No cyanosis, clubbing, or pedal edema. NEUROLOGICAL: Gross neurological examination did not reveal any focal deficits. SKIN: No rashes. Assessment: Assessment and plan * Bright red blood per rectum suspect lower gastrointestinal bleed * Acute blood loss anemia * History of seasonal ALLERGIES * In regards to blood loss anemia, lower GI bleed H&H ordered every 6 hours/type and screen ordered * Status post 2 units of packed RBC 06/25, follow-up H&H ordered * Continue patient on IV Protonix * Continue clear liquid diet, general surgery consulted plan for colonoscopy today * Requested ICU team to evaluate secondary to ongoing GI bleed in significant drop in hemoglobin * Unable to clearly see source of bleeding, lower GI bleed colonoscopy inconclusive excessive blood noted. Patient transferred to [facility] for further evaluation Plan - Discharge Summary Discharge Rx Participant: No New Discharge Prescriptions: No Action Montelukast Sodium [Singulair] 10 mg PO HS Loratadine-Pseudoeph 10-240 mg [Claritin-D 24 Hour] 1 tab PO HS Discharge Medication List Loratadine-Pseudoeph 10-240 mg [Claritin-D 24 Hour] 1 tab PO HS 10/16/20 [History] Montelukast Sodium [Singulair] 10 mg PO HS 10/16/20 [History] Follow up Appointment(s)/Referral(s): Stanley Willoughby MD [Primary Care Provider] - 1-2 days Discharge Disposition: OTHER INSTITUTION NOT DEFINED
== END 2023-06-26 03:00 | disposition short-term general hospital (02) | DRG 378 ==
LOC: EC 08:47 → 3SCARD 11:22 → 2SICU 06-25 12:00
PROVIDERS: ADMIT Internal Medicine; ATTEND Internal Medicine
PROC: 0DJD8ZZ Inspection of Lower Intestinal Tract, Via Natural or Artificial Opening Endoscopic (ICD-10-PCS; principal; 2023-06-25 07:30)
PROC: 0DB58ZX Excision of Esophagus, Via Natural or Artificial Opening Endoscopic, Diagnostic (ICD-10-PCS; principal; 2023-06-25 07:30)
PROC: 0DB78ZX Excision of Stomach, Pylorus, Via Natural or Artificial Opening Endoscopic, Diagnostic (ICD-10-PCS; principal; 2023-06-25 07:30)
PROC: 30233N1 Transfusion of Nonautologous Red Blood Cells into Peripheral Vein, Percutaneous Approach (ICD-10-PCS; 2023-06-25 07:30)
DX: K57.31 Diverticulosis of large intestine without perforation or abscess with bleeding (principal); D62 Acute posthemorrhagic anemia; K64.9 Unspecified hemorrhoids; K21.00 Gastro-esophageal reflux disease with esophagitis, without bleeding; K29.70 Gastritis, unspecified, without bleeding; K44.9 Diaphragmatic hernia without obstruction or gangrene; G47.33 Obstructive sleep apnea (adult) (pediatric); E78.5 Hyperlipidemia, unspecified; Z79.899 Other long term (current) drug therapy; Z86.010 Personal history of colon polyps; Z87.891 Personal history of nicotine dependence
CPT/HCPCS: 36415; 36430; 43239; 45330; 80048; 80053; 83605; 84132; 85025; 85027; 85610; 85730; 86140; 86850; 86900; 86901; 86920; 87635; 88305; 96361; 96374; 99285

== ENCOUNTER 2024-01-20 04:57 | Emergency (ER) | payer BC ==
[2024-01-20 05:33] VITALS: TEMP 98.2
--- NOTE | 2024-01-20 06:24 | ED ---
Extremity Problem HPI - General Chief complaint: Extremity Problem,Nontraumatic Stated complaint: Left shoulder pain Time Seen by Provider: 01/20/24 05:58 Source: patient, RN notes reviewed Mode of arrival: ambulatory Limitations: no limitations - History of Present Illness Initial comments: This is a 53-year-old male who presents to the emergency department for left shoulder pain. States that yesterday he woke up in the morning with severe pain in the left shoulder, which has since been getting worse. Unsure if he may have done something to injure it in his sleep. He is barely able to move the arm due to his pain. Denies any chest pain or shortness of breath. Pain does not radiate anywhere. He tried taking [id number] medication for his pain without any relief in symptoms. He also took a medication previously prescribed by his primary care provider for neck pain, but cannot recall what this was. This was not effective either. MD Complaint: extremity pain - Related Data Home Medications Medication Instructions Recorded Confirmed Loratadine-Pseudoeph 10-240 mg 1 tab PO HS 10/16/20 06/24/23 [Claritin-D 24 Hour] Montelukast Sodium [Singulair] 10 mg PO HS 10/16/20 06/24/23 Previous Rx's Medication Instructions Recorded Naproxen Sodium 550 mg PO BID PRN #30 tablet 01/20/24 methocarbamoL [Robaxin-750] 1,500 mg PO TID PRN #30 tab 01/20/24 Allergies Allergy/AdvReac Type Severity Reaction Status Date / Time No Known Allergies Allergy Verified 01/20/24 05:07 Review of Systems ROS Statement: Those systems with pertinent positive or pertinent negative responses have been documented in the HPI. ROS Other: All systems not noted in ROS Statement are negative. Past Medical History Past Medical History: GI Bleed, Hyperlipidemia Additional Past Medical History / Comment(s): divereticulitis History of Any Multi-Drug Resistant Organisms: None Reported Additional Past Surgical History / Comment(s): parathyroid surgery Past Anesthesia/Blood Transfusion Reactions: No Reported Reaction Past Psychological History: No Psychological Hx Reported Smoking Status: Former smoker Past Alcohol Use History: Occasional Past Drug Use History: Marijuana General Exam Limitations: no limitations General appearance: alert, in distress Head exam: Present: atraumatic, normocephalic, normal inspection Respiratory exam: Present: normal lung sounds bilaterally. Absent: respiratory distress, wheezes, rales, rhonchi, stridor Cardiovascular Exam: Present: regular rate, normal rhythm, normal heart sounds. Absent: systolic murmur, diastolic murmur, rubs, gallop, clicks Extremities exam: Present: other (Tenderness to palpation over the left shoulder. Little to no range of motion secondary to pain. No swelling, erythema, or deformities. 2+ radial pulses.) Neurological exam: Present: alert, oriented X3, CN II-XII intact Psychiatric exam: Present: normal affect, normal mood Skin exam: Present: warm, dry, intact, normal color. Absent: rash Course Vital Signs 01/20/24 01/20/24 05:06 06:51 Temperature 98.2 F Pulse Rate 79 69 Respiratory 18 20 Rate Blood Pressure 162/99 137/103 O2 Sat by Pulse 98 95 Oximetry Medical Decision Making - Medical Decision Making This is a 53 year old male who presents to the emergency department for left shoulder pain. Was pt. sent in by a medical professional or institution? @ -No Did you speak to anyone other than the patient for history? @ -No Did you review nursing and triage notes? @ -Yes, and I agree, it is accurate with regards to the patient's symptoms. Were old charts reviewed? @ -No Differential Diagnosis? @ -Differential Musculoskeletal: Muscular strain, contusion, ligament sprain, fracture, arthritis, septic arthritis, bursitis, cellulitis, muscle spasm, nerve compression, DVT, arterial occlusion, herpes zoster, electrolyte abnormality, tumor.... This is not meant to be in all inclusive list EKG interpreted by me (3pts min.)? @ -Not obtained X-rays interpreted by me (1pt min.)? @ -X-ray of the left shoulder obtained. My interpretation identifies no acute fractures. CT interpreted by me (1pt min.)? @ -Not obtained U/S interpreted by me (1pt. min.)? @ -Not obtained What testing was considered but not performed? (CT, X-rays, U/S, labs)? Why? @ -None What meds were considered but not given? Why? @ -None Did you discuss the management of the patient with other professionals? @ -No Did you reconcile home meds? @ -No Was smoking cessation discussed for >3mins.? @ -No Was critical care preformed (if so, how long)? @ -No Were there social determinants of health that impacted care today? How? (Homelessness, low income, unemployed, alcoholism, drug addiction, transportation, low edu. Level, literacy, decrease access to med. care, retirement, rehab)? @ -No Was there de-escalation of care discussed even if they declined? (Discuss DNR or withdrawal of care, Hospice)? @ -No What co-morbidities impacted this encounter? (DM, HTN, Smoking, COPD, CAD, Cancer, CVA, Hep., AIDS, mental health diagnosis, sleep apnea, morbid obesity)? @ -None Was patient admitted / discharged? @ -Discharged. X-ray of the left shoulder obtained revealing no acute process. Patient had no external irregularities such as swelling, erythema, warmth, a rash, or deformities. Discussed with the patient that this does not rule out other irregularities such as a tendinitis or issues with a rotator cuff. Pain medication administered in the emergency department with improvement in symptoms. Prescription for Naproxen and Robaxin provided with dosing instructions reviewed. He was also given information for follow-up with orthopedics for further evaluation. Patient discharged home in stable condition. Undiagnosed new problem with uncertain prognosis? @ -None Drug Therapy requiring intensive monitoring for toxicity (Heparin, Nitro, Insulin, Cardizem)? @ -None Were any procedures done? @ -None Diagnosis/symptom? @ -Left shoulder pain Acute, or Chronic, or Acute on Chronic? @ -Acute Uncomplicated (without systemic symptoms) or Complicated (systemic symptoms)? @ -Uncomplicated Side effects of treatment? @ -None Exacerbation, Progression, or Severe Exacerbation] @ -Not applicable Poses a threat to life or bodily function? @ -This may limit his use of the left arm for the mean time. Return precautions reviewed in depth, the patient is instructed to return to the emergency department with any new, worsening, or concerning symptoms. Patient verbalized understanding. This case was discussed in detail with the attending ED physician, Dr. Singh. Presentation, findings, and treatment plan discussed in detail as well. - Radiology Data Radiology results: report reviewed, image reviewed Disposition Clinical Impression: Left shoulder pain Disposition: HOME SELF-CARE Instructions (If sedation given, give patient instructions): Shoulder Pain (ED) Additional Instructions: Return to the emergency department with any new, worsening, or concerning symptoms. Take the naproxen twice daily as needed for pain relief. If you choose to take this, do not take any other anti-inflammatories such as ibuprofen, take one or the other. Take the Robaxin as 1 to 2 tablets 3-4 times daily. Be aware that this may make you drowsy. Contact orthopedics as listed below for a follow-up appointment and further evaluation. Follow up with your primary care provider in 1-2 days. Prescriptions: Naproxen Sodium 550 mg PO BID PRN #30 tablet PRN Reason: Pain methocarbamoL [Robaxin-750] 1,500 mg PO TID PRN #30 tab PRN Reason: Pain Is patient prescribed a controlled substance at d/c from ED?: No Referrals: Stanley Willoughby MD [Primary Care Provider] - 1-2 days Franko Loomis MD [Medical Doctor] - 1-2 days Time of Disposition: 06:50
--- NOTE | 2024-01-20 06:32 | XR ---
Left shoulder. HISTORY: Pain without trauma. COMPARISON: None. TECHNIQUE: 2 views left shoulder were obtained. FINDINGS: There is no fracture, dislocation, intraosseous, intra-articular or soft tissue abnormality. IMPRESSION: No significant abnormality seen.
[2024-01-20] MEDS: KETOROLAC 15 MG/ML 1 ML VIAL IVP STA (06:43)
[2024-01-20] MEDS: MORPHINE SULFATE 4 MG/ML SYRINGE IVP STA (06:44)
[2024-01-20] MEDS: DEXAMETHASONE SOD PHOSPHATE 10 MG/ML 1 ML VIAL IVP STA (06:44)
[2024-01-20] MEDS: ORPHENADRINE 30 MG/ML 2 ML VIAL IVP STA (06:44)
[2024-01-20] MEDS: ORPHENADRINE 30 MG/ML 2 ML VIAL IM STA (07:09)
[2024-01-20] MEDS: KETOROLAC 15 MG/ML 1 ML VIAL IM STA (07:11)
[2024-01-20] MEDS: ACET/COD 300 MG/30 MG STARTER PACK 6 TAB BTL PO STA (08:30)
[2024-01-20 09:06] VITALS: BP 116/83; PULSE 76; RESP 18
== END 2024-01-20 08:35 | disposition home or self-care (01) ==
LOC: EC 04:57
DX: M25.512 Pain in left shoulder (principal); F12.90 Cannabis use, unspecified, uncomplicated; Z87.891 Personal history of nicotine dependence
CPT/HCPCS: 73030; 99283; 96374; 96375 ×3; J2270; J1100; J2360; J1885